=== PATIENT | female | born 1995 | race Caucasian/White ===

== ENCOUNTER → 2017-11-17 16:55 | Outpatient (CLI) | payer OTHER, MEDICAID, SELFPAY ==
[2017-11-17 19:01] LABS: hCG Titer Quant., Serum 10534 mIU/mL (<9 non-preg)
[2017-11-18 02:00] LABS: Chlamydia Trachomatis by PCR Negative (Negative); Neisserai gonorrhoeae by PCR Negative (Negative); Probe Check PASS; Sample Adequacy Control PASS; Specimen Processing Control PASS
== END ==
PROVIDERS: Visit Provider Obstetrics & Gynecology
DX: N91.2 Amenorrhea, unspecified (principal); Z12.4 Encounter for screening for malignant neoplasm of cervix; Z11.3 Encounter for screening for infections with a predominantly sexual mode of transmission
CPT/HCPCS: 36415; 84702; 87491; 87591; 88175; G0145

== ENCOUNTER → 2017-11-19 16:58 | Outpatient (CLI) | payer OTHER, MEDICAID, SELFPAY ==
[2017-11-19 18:36] LABS: hCG Titer Quant., Serum 16811 mIU/mL (<9 non-preg)
== END ==
PROVIDERS: Visit Provider Obstetrics & Gynecology
DX: N91.2 Amenorrhea, unspecified (principal)
CPT/HCPCS: 36415; 84702

== ENCOUNTER → 2017-12-08 14:35 | Outpatient (CLI) | payer OTHER, MEDICAID, SELFPAY ==
[2017-12-08 15:43] LABS: Absolute Lymphocyte Count 2.31 X10^3/ul (0.83-4.51); Absolute Neutrophil Count 7.8 X10^3/uL (2.0-7.7); Basophil# 0.03 X10^3/uL; Basophil% 0.3 % (0-1); Eosinophils% 0.9 % (0-5); Hematocrit 41.7 % (37-47); Hemoglobin 14.3 g/dl (12.0-15.0); Lymphocyte # 2.31 X10^3/ul (4.0); Lymphocyte % 21.6 % (19-41); Mean Corp Hgb Conc 34.3 g/gl (32-36); Mean Corpuscular Hgb 30.2 pg (27.0-32.0); Mean Corpuscular Volume 88.2 fL (81-99); Mean Platelet Vol. 9.8 fl (6.2-12.0); Monocyte# 0.41 X10^3/uL; Monocyte% 3.8 % (0-10); Neutrophil # 7.78 X10^3/uL (2.7-7.7); Neutrophil % 72.7 % (47-70); Platelet Count 423 K/mm3 (150-450); RBC Distribution Width CV 13.5 % (11.6-14.6); RBC Distribution Width SD 43.2 fl (35.1-43.9); Red Blood Count 4.73 M/mm3 (4.2-5.4); White Blood Count 10.7 K/mm3 (4.4-11.0)
[2017-12-08 15:47] LABS: POSITIVE COUNT NO; POSITIVE DIFFERENTIAL NO; POSITIVE MORPHOLOGY NO
[2017-12-08 16:00] LABS: Glucose, Dipstick Normal (Normal); Ketone-Dipstick 5 mg/dl (Negative); Leukocyte Esterase-Dipstick 25 /ul (Negative); Nitrite-Dipstick Negative (Negative); Occult Blood-Urine Negative /ul (Negative); Protein-Dipstick 15 mg/dl (Negative); Urine Bilirubin Dipstick Negative (Negative); Urine Urobilinogen Normal (Normal); Urine pH 6.5 (5.0 - 8.0)
[2017-12-08 16:01] LABS: Color, Urine YELLOW (Yellow); Urine Clarity Clear (Clear)
[2017-12-08 16:28] LABS: Amphetamine Urine VISTA NEGATIVE (<1000 ng/mL); Barbiturate Urine VISTA NEGATIVE (< 200 ng/mL); Benzodiazepine Urine VISTA NEGATIVE (< 200 ng/mL); Cocaine Urine VISTA NEGATIVE (< 300 ng/mL); Ecstacy Urine VISTA NEGATIVE (< 500 ng/mL); Methadone Urine VISTA NEGATIVE (< 300 ng/mL); PCP Urine VISTA NEGATIVE (< 25 ng/mL); THC Urine VISTA NEGATIVE (< 50 ng/mL); Thyroid Stim Hormone (TSH) 1.24 uIU/mL (0.358-3.74); Vista UDS pH Range 6
[2017-12-08 16:58] LABS: COTININE Drug Screen Positive (<200 ng/mL); HIV - WCH Non-Reactive (Nonreactive); Rubella IgG 13.1 IU/mL
[2017-12-10 08:12] LABS: HEPATITIS B SURFACE AG Negative (Negative); Hep C Antibodies 0.2 s/co ratio (0.0-0.9)
[2017-12-12 00:18] LABS: Prenatal RPR NONREACTIVE (NONREACTIVE)
== END ==
PROVIDERS: Visit Provider Obstetrics & Gynecology
DX: Z34.81 Encounter for supervision of other normal pregnancy, first trimester (principal)
CPT/HCPCS: 36415; 80307; 81002; 84443; 85025; 86703; 86762; 86803; 87340

== ENCOUNTER → 2018-02-18 15:02 | Outpatient (CLI) | payer OTHER, MEDICAID, SELFPAY ==
[2018-02-24 11:54] LABS: V-Zoster IgG (Immunity) 225 index (Immune >165)
== END ==
PROVIDERS: Visit Provider Obstetrics & Gynecology
DX: Z34.82 Encounter for supervision of other normal pregnancy, second trimester (principal)
CPT/HCPCS: 36415; 86787

== ENCOUNTER → 2018-04-16 14:41 | Outpatient (CLI) | payer MEDICAID, SELFPAY ==
[2018-04-16 15:41] LABS: Hematocrit 38.4 % (37-47); Hemoglobin 12.9 g/dl (12.0-15.0); Mean Corp Hgb Conc 33.6 g/gl (32-36); Mean Corpuscular Hgb 30.6 pg (27.0-32.0); Mean Corpuscular Volume 91.2 fL (81-99); Mean Platelet Vol. 10.4 fl (6.2-12.0); Platelet Count 274 K/mm3 (150-450); RBC Distribution Width CV 13.6 % (11.6-14.6); RBC Distribution Width SD 44.5 fl (35.1-43.9); Red Blood Count 4.21 M/mm3 (4.2-5.4); White Blood Count 16.8 K/mm3 (4.4-11.0)
[2018-04-16 15:42] LABS: Scan Indicated on CBC? Y/N NO
[2018-04-16 15:51] LABS: Glucose Challenge Gest 1H 50g 145 mg/dL (70-140)
== END ==
PROVIDERS: Visit Provider Obstetrics & Gynecology
DX: Z34.83 Encounter for supervision of other normal pregnancy, third trimester (principal)
CPT/HCPCS: 36415; 82950; 85027

== ENCOUNTER → 2018-04-24 09:44 | Outpatient (CLI) | payer MEDICAID, SELFPAY ==
[2018-04-24 11:46] LABS: Glucose GTT-Gestation. Fasting 80 mg/dL (<105)
[2018-04-24 13:35] LABS: Glucose GTT-Gestational 2 Hr 145 mg/dL (<165)
[2018-04-24 13:41] LABS: Glucose GTT-Gestational 1 Hr 151 mg/dL (<190)
[2018-04-24 14:15] LABS: Glucose GTT-Gestational 3 Hr 82 L (<145)
--- OUTSIDE RECORDS SUMMARY | 2018-06-09 23:39 | XMS RPT_ITS ---
:1995 Author Organization OHIP Care Team Providers Name Role Phone ADRIENNE BURTON Consulting Unavailable ADRIENNE BURTON Referring Unavailable CHANTE OTT CNM Admitting Unavailable CHANTE OTT CNDeedee Attending Unavailable CHANTE OTT CNM Primary Care Unavailable PROVIDER, UNKNOWN Consulting Unavailable PROVIDER, UNKNOWN Consulting Unavailable PROVIDER, UNKNOWN Consulting Unavailable Adrienne Bañuelos Attending Unavailable Ramona Dos Santos PA-C Referring Unavailable Primay Care Physicia, No Primary Care Unavailable Adrienne Bañuelos Attending Unavailable DOCTOR, OUT OF TOWN Primary Care Unavailable Shawna Rowan Attending Unavailable Shawna Rowan Referring Unavailable Primay Care Physicia, No Primary Care Unavailable Adrienne Bañuelos Attending Unavailable Primay Care Physicia, No Primary Care Unavailable Solis Figueredo Attending Unavailable Primay Care Physicia, No Primary Care Unavailable Adrienne Bañuelos Attending Unavailable Primay Care Physicia, No Primary Care Unavailable PROBLEMS PROBLEMS DATE TYPE CONDITION / CODE ATTENDING STATUS SOURCE 04/20/2018 Unknown Z34.83 - Encounter Adrienne Bañuelos for supervision of [facility] , third Repository trimester / Z34.83(ICD-10) 02/27/2018 Admitting Other specified NAMRATA, CHANTE Active Giovanni Pomerene Diagnosis related [facility] conditions, second Hospital trimester / Repository [id number](ICD-10) 02/27/2018 Principle Other specified NAMRATA, CHANTE Active Giovanni Pomerene Diagnosis related [facility] conditions, second Hospital trimester / Repository D05134(ICD-10) 02/27/2018 Secondary Unspecified NAMRATA, CHANTE Active Giovanni Pomerene Diagnosis abdominal pain / [facility] R109(ICD-10) Hospital Repository 02/27/2018 Secondary Low back pain / NAMRATA, CHANTE Active Giovanni Pomerene Diagnosis M545(ICD-10) [facility] Hospital Repository 02/27/2018 Secondary Smoking (tobacco) NAMRATA, CHANTE Active Giovanni Pomerene Diagnosis complicating [facility] , second Hospital trimester / Repository A36716(ICD-10) 02/27/2018 Secondary Nicotine NAMRATA, CHANTE Active Giovanni Pomerene Diagnosis dependence, [facility] cigarettes, Hospital uncomplicated / Repository M02630(ICD-10) 02/27/2018 Secondary 20 weeks gestation NAMRATA, CHANTE Active Giovanni Pomerene Diagnosis of / [facility] Z3A20(ICD-10) Hospital Repository 05/20/2018 Unknown Z34.82 - Encounter Solis Figueredo for supervision of [facility] , second Repository trimester / Z34.82(ICD-10) 05/20/2018 Unknown Z34.81 - Encounter Adrienne Bañuelos for supervision of [facility] , first Repository trimester / Z34.81(ICD-10) 05/20/2018 Unknown N91.2 - Amenorrhea, Shawna Rowan unspecified / [facility] N91.2(ICD-10) Hospital Repository PROCEDURES PROCEDURES No Procedure Records FoundRESULTS RESULTS GESTATIONAL GTT 3HR Collected: 04/24/2018 Status: F Source: IRA 100G 10:01 AM [facility] REPOSITORY Order Comment: Is Patient Fasting? N TYPE CODE TESTS RESULT OUT OF RANGE REFERENCE UNITS LAB L501.0650 <105 mg/dL Normal GLU 80 GTT-FASTING Result Comment: GLUCOSE TOLERANCE TEST FOR Reference Interval GESTATIONAL DIABETES Fasting <105 mg/dL 1 hour <190 mg/dl 2 hour <165 mg/dl 3 hour <145 mg/dl LAB L501.0670 <165 mg/dL Normal GLU GTT- 2HR 145 LAB L501.0660 <190 mg/dL Normal GLU GTT- 1HR 151 LAB L501.0680 <145 L Normal GLU GTT- 3HR 82 Performed By: #### L500.4710 #### [facility] [address] [facility]. [place], [place], [id number] CBC-COMPLETE BLOOD CNT Collected: 04/16/2018 Status: F Source: IRA NO DIFF 2:46 PM [facility] REPOSITORY TYPE CODE TESTS RESULT OUT OF RANGE REFERENCE UNITS LAB L100.1000 4.4-11.0 K/mm3 High WBC 16.8 LAB L100.1200 4.2-5.4 M/mm3 Normal RBC 4.21 LAB L100.1300 12.0-15.0 g/dl Normal HGB 12.9 LAB L100.1400 37-47 % Normal HCT 38.4 LAB L100.1500 81-99 fL Normal MCV 91.2 LAB L100.1600 27.0-32.0 pg Normal MCH 30.6 LAB L100.1700 32-36 g/gl Normal MCHC 33.6 LAB L100.1810 11.6-14.6 % Normal RDW CV 13.6 LAB L100.1820 35.1-43.9 fl High RDW SD 44.5 LAB L100.1900 150-450 K/mm3 Normal PLT 274 LAB L100.2000 6.2-12.0 fl Normal MPV 10.4 Performed By: #### L100.0500 #### [facility] [address] [facility]. [place], [place], [id number] GLUCOSE CHALLENGE GEST Collected: 04/16/2018 Status: F Source: IRA 1H 50G 2:46 PM [facility] REPOSITORY TYPE CODE TESTS RESULT OUT OF RANGE REFERENCE UNITS LAB L501.0250 70-140 mg/dL High GLU GEST 145 50g 1H Performed By: #### L501.0250 #### [facility] [place], [address] Observed: 02/27/2018 Status: F Source: GIOVANNI KENNEDY CULTURE URINE 8:12 PM [facility] REPOSITORY CULTURE URINE _URINE CULTURE_ M I C R O B I O L O G Y R E P O R T FINAL Antimicrobial Susceptibility and Organism Identification Report Specimen Number : [id number] Requested : 02/27/18 Specimen Source : CLEAN CATCH URINE Collected : 02/27/18 20:12 Thomason of Isolation : OBSTETRICS Received : 02/27/18 20:12 Requesting Physician : NAMRATA Patient/Specimen Tests and Comments Specimen Comments FINAL REPORT: URINE COLONY COUNT: [id number] CFU/CC >OR=TO 3 COLONY TYPES PROBABLE CONTAMINATION Tech : Source : CLEAN CATCH URINE ID # : [id number] FINAL Report Date : / / : Collected : 02/27/18 20:12 03/02/18.BKO. 03/01/186.KLS. 03/02/18.BKO.COMPLETE Performed By: #### [id number] #### [facility],[address] [place] [address] URINALYSIS WITH Collected: 02/27/2018 Status: F Source: [facility] MICROSCOPY 8:05 PM [facility] REPOSITORY TYPE CODE TESTS RESULT OUT OF REFERENCE UNITS RANGE LAB URINALYSIS WITH MICROSCOPY(LOIN C) URINALYSIS WITH MICROSCOPY Result Comment: URINALYSIS LAB Specimen Type(LOINC) Specimen Type Clean catch LAB Color(LOINC) NORMAL: YELLOW Color sylvie LAB Clarity(LOINC) NORMAL: CLEAR Clarity clear LAB ph(LOINC) NORMAL: 5.0-8.0 ph 6 LAB Protein(LOINC) NORMAL: Abnormal NEGATIVE Protein 15 LAB Glucose(LOINC) NORMAL: NORMAL Glucose NORM LAB Ketone(LOINC) NORMAL: Abnormal NEGATIVE Ketone 15 LAB Bilirubin(LOINC) NORMAL: NEGATIVE Bilirubin NEG LAB Blood(LOINC) NORMAL: NEGATIVE Blood NEG LAB Urobilinog(LOINC) NORMAL: Abnormal NORMAL Urobilinog 1 LAB Sp Murdo(LOINC) NORMAL: 1.010-1.030 Sp Murdo 1.025 LAB Nitrite(LOINC) NORMAL: NEGATIVE Nitrite NEG LAB Leukocytes(LOINC) NORMAL: Abnormal NEGATIVE Leukocytes 25 Result Comment: URINE MICROSCOPIC LAB Wbc(LOINC) 0-5 / hpf Wbc 1-5 LAB Rbc(LOINC) 0-3 / hpf Rbc 0-5 LAB Casts(LOINC) Casts NONE LAB Crystals(LOINC) Crystals NONE LAB Amorphous(LOINC) Amorphous NONE LAB Bacteria(LOINC) Bacteria 1+ LAB Epi Cells(INC) Epi Cells MODERATE LAB Mucous(LOINC) Mucous NONE LAB Yeast(INC) Yeast NONE Performed By: #### [id number] #### [facility],[address] [place] [address] WET Observed: 02/27/2018 Status: F Source: [facility] PREP TRICHOMONAS 8:05 [facility] REPOSITORY WET PREP TRICHOMONAS WET PREP TRICHOMONAS WET PREP: No Trich. seen Performed By: #### [id number] #### [facility],[address] [place] [address] Observed: 02/27/2018 Status: F Source: [facility] RICK PREP 8:05 [facility] REPOSITORY RICK PREP RICK PREP YEAST: No Yeast seen FUNGAL: No Fungal elements seen Performed By: #### [id number] #### [facility],[address] [place] [address] CHLAMYDIA & GC RNA TMA Collected: 02/27/2018 Status: F Source: [facility] [QUEST] 8:05 [facility] REPOSITORY TYPE CODE TESTS RESULT OUT OF REFERENCE UNITS RANGE LAB CHLAMYDIA & GC RNA TMA [QUEST]([facility]) CHLAMYDIA & GC RNA TMA [QUEST] Result Comment: _CHLAMYDIA/NEISSERIA GONORRHOEAE RNA,TMA_ CHLAMYDIA/N. GONORRHOEAE RNA, TMA, UROGENITAL Reported: 03/03/2018 14:57 Status=F TEST RESULT FLAG RANGE UNITS CTRACHOMATISRNA, TMA, Not Detected Not Detected 03/03/18.1509.rfl.CORRCTD .AMRR .39200-8 UROG KINDRA CRUZ, Not Detected Not Detected 03/03/18.1509.rfl.CORRCTD .AMRR .12031-6 UROG This test was performed using the APTIMA COMBO2(R) Assay (GEN-PROBE(R)). The analytical performance characteristics of this assay, when used to test SurePath(R) specimens have been determined by [employer]. Test Performed by [employer] [place], [facility], [address] [place] [address] Christopher Shea M.D., Ph.D., Director of Laboratories , [place] [id number] 03/03/18.1827.XMT.SENT REF 03/03/18.XMT.SENT REF Performed By: #### [id number] #### [facility],[address] [place] [address] V-ZOSTER IGG Collected: 02/18/2018 Status: F Source: IRA (IMMUNITY) 3:06 PM [facility] REPOSITORY Order Comment: Comments: UNK IMMUNITY TYPE CODE TESTS RESULT OUT OF RANGE REFERENCE UNITS LAB L3400.0000 Immune >165 index Normal VZOST IgG 225 09142 Result Comment: Negative <135 Equivocal 135 - 165 Positive >165 A positive result generally indicates exposure to the pathogen or administration of specific immunoglobulins, but it is not indication of active infection or stage of disease. Performed at: - [facility] [id number] Ux Manager: Jesus Solis PhD, Phone: [phone] Performed By: #### L3400.0000 #### [facility] (refer to report for specific site) refer to report for address and phone number URINE DRUG SCREEN Collected: 12/08/2017 Status: F Source: IRA (VISTA) 2:39 PM [facility] REPOSITORY Order Comment: List of Drugs Taken or Suspected? UNK TYPE CODE TESTS RESULT OUT OF RANGE REFERENCE UNITS LAB L505.0075 TO BE Normal CONFIRMED Result Comment: CONFIRMATORY TESTING FOR ALL POSITIVE URINE DRUG SCREEN RESULTS WILL ONLY BE SENT OUT UPON PHYSICIAN ORDER. VISTA Urine Drug Screen methods provide only preliminary analytical test results. A more specific alternate chemical method must be used in order to obtain a confirmed analytical result. Gas chromatography/mass spectrometery (GC/MS) is the preferred confirmatory method. Clinical consideration and professional judgement should be applied to any drug of abuse test result, particularly when preliminary positive results are used. URINE TCA TESTING MUST BE ORDERED SEPARATELY. USE TEST MNEMONIC: [facility] LAB L505.5005 VISTA UDS PH 6 Normal LAB L505.5015 <1000 ng/mL AMPHETAMINES Normal NEGATIVE LAB L505.5025 < 200 ng/mL BARBITIURATES Normal NEGATIVE LAB L505.5035 < 200 ng/mL BENZODIAZIPINE Normal NEGATIVE LAB L505.5045 < 300 ng/mL COCAINE Normal NEGATIVE LAB L505.5055 < 500 ng/mL ECSTACY Normal NEGATIVE LAB L505.5065 < 300 ng/mL METHADONE Normal NEGATIVE LAB L505.5075 < 300 ng/mL OPIATES Normal NEGATIVE LAB L505.5085 < 25 ng/mL PCP Normal NEGATIVE LAB L505.5095 < 50 ng/mL THC Normal NEGATIVE Performed By: #### L505.5000, L505.6240 #### [facility] [address] [facility]. [place], [place], [id number] NICOTINE URINE DRUG Collected: 12/08/2017 Status: F Source: IRA SCREEN 2:39 PM [facility] REPOSITORY Order Comment: List of Drugs Taken or Suspected? UNK TYPE CODE TESTS RESULT OUT OF RANGE REFERENCE UNITS LAB L505.6250 TO BE Normal CONFIRMED Result Comment: CONFIRMATORY TESTING FOR ALL POSITIVE URINE DRUG SCREEN RESULTS WILL ONLY BE SENT OUT UPON PHYSICIAN ORDER. The results of Urine Drug Screen methods provide only preliminary analytical test results. A more specific alternate chemical method must be used in order to obtain a confirmed analytical result. Gas chromatography/mass spectrometery (GC/MS) is the preferred confirmatory method. Clinical consideration and professional judgement should be applied to any drug of abuse test result, particularly when preliminary positive results are used. LAB L505.6270 <200 ng/mL High COT DRG Positive SCREEN Result Comment: Cotinine is the first-stage metabolite of Nicotine. Performed By: #### L505.5000, L505.6240 #### [facility] [address] [facility]. [place], [place], [address] CBC W/DIFF, AUTOMATED Collected: 12/08/2017 Status: F Source: IRA 2:39 PM [facility] REPOSITORY TYPE CODE TESTS RESULT OUT OF RANGE REFERENCE UNITS LAB L100.1000 4.4-11.0 K/mm3 Normal WBC 10.7 LAB L100.1200 4.2-5.4 M/mm3 Normal RBC 4.73 LAB L100.1300 12.0-15.0 g/dl Normal HGB 14.3 LAB L100.1400 37-47 % Normal HCT 41.7 LAB L100.1500 81-99 fL Normal MCV 88.2 LAB L100.1600 27.0-32.0 pg Normal MCH 30.2 LAB L100.1700 32-36 g/gl Normal MCHC 34.3 LAB L100.1810 11.6-14.6 % Normal RDW CV 13.5 LAB L100.1820 35.1-43.9 fl Normal RDW SD 43.2 LAB L100.1900 150-450 K/mm3 Normal PLT 423 LAB L100.2000 6.2-12.0 fl Normal MPV 9.8 LAB L100.2100 47-70 % High NEUT% 72.7 LAB L100.2200 19-41 % Normal LY% 21.6 LAB L100.2300 0-10 % Normal MONO% 3.8 LAB L100.2400 0-5 % Normal EO% 0.9 LAB L100.2500 0-1 % Normal BASO% 0.3 LAB L100.2550 0.0-0.9 % Normal IM GRAN % 0.700 Result Comment: IG% - Immature Granulocytes (promyelocytes, myelocytes and metamyelocytes) > 1% indicates that a LEFT SHIFT is Present. LAB L100.2620 2.0-7.7 X10 3/uL High Absolute Neut 7.8 LAB L100.2720 0.83-4.51 X10 3/ul Normal Absolute Lymph 2.31 Performed By: #### L100.0100 #### [facility] [address] [place], [address] URINALYSIS, ROUTINE Collected: 12/08/2017 Status: F Source: IRA (DIPSTICK) 2:39 PM [facility] REPOSITORY Order Comment: How was Urine Obtained? Urine, Random TYPE CODE TESTS RESULT OUT OF RANGE REFERENCE UNITS LAB L400.3000 Yellow COLOR Normal YELLOW LAB L400.3050 Clear Normal CLARITY Clear LAB L400.3200 Normal mg/dl Normal GLUCOSE, UR Normal LAB L400.3300 Negative mg/dL Normal BILIRUBIN URINE Negative LAB L400.3400 Negative mg/dl High 5 KETONE UR LAB L400.3465 1.002-1.030 Normal SP.GR. DIPSTX 1.020 LAB L400.3550 5.0 - 8.0 pH UR Normal 6.5 LAB L400.3600 Negative mg/dl High PROT 15 DIPSTX LAB L400.3700 Normal mg/dl Normal UROBILI Normal LAB L400.3750 Negative Normal NITRITE UR Negative LAB L400.3780 Negative /ul Normal OCCULT BLOOD-UR Negative LAB L400.3800 Negative /ul High LEUK 25 ESTERASE Performed By: #### L400.2010 #### [facility] [address] [place], [place], [id number] THYROID STIM HORMONE Collected: 12/08/2017 Status: F Source: ADRIAN (TSH) 2:39 PM [facility] REPOSITORY TYPE CODE TESTS RESULT OUT OF RANGE REFERENCE UNITS LAB L501.9520 0.358-3.74 uIU/mL Normal TSH 1.24 Performed By: #### L501.9520 #### [facility] [address] [place], [place], [id number] RUBELLA IGG Collected: 12/08/2017 Status: F Source: ADRIAN 2:39 PM [facility] REPOSITORY TYPE CODE TESTS RESULT OUT OF RANGE REFERENCE UNITS LAB L509.4000 IU/mL Normal Rubella IgG 13.1 Result Comment: Antibody results Interpretation of Immune Status < 5 IU/ml Presumed Non-immune 5 - < 10 IU/ml Equivocal > or = 10 IU/ml Presumed Immune Performed By: #### L509.4000, L3890.6005 #### [facility] [address] [facility] [place], [place], [id number] HIV - [facility] Collected: 12/08/2017 Status: F Source: ADRIAN 2:39 PM [facility] REPOSITORY TYPE CODE TESTS RESULT OUT OF RANGE REFERENCE UNITS LAB L3890.6005 Nonreactive Normal HIV - [facility] Non-Reactive Performed By: #### L509.4000, L3890.6005 #### [facility] [address] [place], [place], [address] T AND S-NO Collected: 12/08/2017 Status: F Source: ADRIAN CHARGE W/PNP 2:39 PM [facility] REPOSITORY Order Comment: Reason for Type AND Screen/Red Cells: Surgery? N TYPE CODE TESTS RESULT OUT OF RANGE REFERENCE UNITS LAB B10.0800 A Normal BLOOD POSITIVE TYPE GEL LAB B100.4050 Normal Ab SCREEN NEGATIVE GEL Performed By: #### B100.7550 #### [facility] [address] [facility] [place], [place], [id number] HEPATITIS B SURFACE Collected: 12/08/2017 Status: F Source: ADRIAN AG 2:39 PM [facility] REPOSITORY TYPE CODE TESTS RESULT OUT OF RANGE REFERENCE UNITS LAB L3100.0400 Negative Normal HB Negative SURF AG Result Comment: Performed at: - [facility] [address] [id number] Ux Manager: Jesus Solis PhD, Phone: [phone] Performed By: #### L3100.0390, L3100.0625 #### [facility] (refer to report for specific site) refer to report for address and phone number HEPATITIS C ANTIBODIES Collected: 12/08/2017 Status: F Source: ADRIAN 2:39 PM [facility] REPOSITORY TYPE CODE TESTS RESULT OUT OF RANGE REFERENCE UNITS LAB L3100.0650 0.0-0.9 s/co ratio Normal HEP C AB 0.2 Result Comment: Negative: < 0.8 Indeterminate: 0.8 - 0.9 Positive: > 0.9 The CDC recommends that a positive HCV antibody result be followed up with a HCV Nucleic Acid Amplification test (924973). Performed By: #### L3100.0390, L3100.0625 #### [facility] (refer to report for specific site) refer to report for address and phone number RPR Collected: 12/08/2017 Status: F Source: IRA 2:39 PM [facility] REPOSITORY TYPE CODE TESTS RESULT OUT OF REFERENCE UNITS RANGE LAB L700.5100 NONREACTIVE Normal RPR NONREACTIVE Performed By: #### L700.5100 #### [facility] [address] [facility] [place], [address] HCG TITER QUANT., Collected: 11/19/2017 Status: F Source: ADRIAN SERUM 5:22 PM [facility] REPOSITORY TYPE CODE TESTS RESULT OUT OF RANGE REFERENCE UNITS LAB L700.8000 <9 non-preg mIU/mL High HCG 51248 QUANT. Performed By: #### L700.8000 #### [facility] [address] [place], [address] HCG TITER QUANT., Collected: 11/17/2017 Status: F Source: ADRIAN SERUM 5:09 PM [facility] REPOSITORY TYPE CODE TESTS RESULT OUT OF RANGE REFERENCE UNITS LAB L700.8000 <9 non-preg mIU/mL High HCG 71831 QUANT. Performed By: #### L700.8000 #### [facility] [address] [facility] [place], [address] CT/NG [facility] BY PCR Collected: 11/17/2017 Status: F Source: ADRIAN 5:08 PM [facility] REPOSITORY TYPE CODE TESTS RESULT OUT OF RANGE REFERENCE UNITS LAB L8200.2100 Negative Normal Chlam Negative Trac PCR LAB L8200.2200 Negative Normal NG by Negative PCR Performed By: #### L8200.2000 #### [facility] [facility] [place], [address] PAP TEST I-G Collected: 11/17/2017 Status: F Source: ADRIAN 5:08 PM [facility] REPOSITORY Order Comment: CYTOLOGY INFORMATION: - CLINICAL INFORMATION: - DATE LMP/MENOPAUSE: 08/18/17 LMP - COLLECTION VIAL: Thin Prep Vial - WEATHER ANALYST SOURCE: CERVICAL/ENDOCERVICAL - COLLECTION TECHNIQUE: BRUSH/SPATULA Specimen Comment: [id number] Specimen Comment: No. of containers..01 ThinPrep Vial TYPE CODE TESTS RESULT OUT OF RANGE REFERENCE UNITS LAB L7400.0800 . Normal DIAGN Comment Result Comment: NEGATIVE FOR INTRAEPITHELIAL LESION AND MALIGNANCY. LAB L7400.0900 . Normal ADEQ Comment Result Comment: Satisfactory for evaluation. Endocervical and/or squamous metaplastic cells (endocervical component) are present. LAB L7400.1400 . Normal PERFORM Comment Result Comment: Nicol Moyer, Used Car Sales Supervisor (ASCP) LAB L7400.2575 . Normal TEST METHOD Comment Result Comment: This liquid based ThinPrep(R) pap test was screened with the use of an image guided system. Performed at: - [facility] [id number] Ux Manager: Cindy Landin MD, Phone: [phone] LAB L7400.4278 . Normal . COMM LAB L7400.2700 . Normal PAPSMR Comment Result Comment: The Pap smear is a screening test designed to aid in the detection of premalignant and malignant conditions of the uterine cervix. It is not a diagnostic procedure and should not be used as the sole means of detecting cervical cancer. Both false-positive and false-negative reports do occur. Performed By: #### L7400.0399 #### [facility] (refer to report for specific site) refer to report for address and phone number ALLERGIES ALLERGIES DATE TYPE / CODE NAME / CODE REACTION SEVERITY SOURCE Drug PENICILLINS Moderate Giovanni Pomerene Allergy/416 (CLASS)/47529674(R ([facility] 746950(SNOM XNORM) Modifier) Hospital ED CT) (Qualifier Repository Value) Drug AMOXICILLIN/650606 Moderate Giovanni Pomerene Allergy/416 76(RXNORM) (Severity [facility] 482303(SNOM Modifier) Hospital ED CT) (Qualifier Repository Value) Drug MORPHINE/40153140( CRYING Moderate Giovanni Pomerene Allergy/416 RXNORM) (Severity [facility] 036082(SNOM Modifier) Hospital ED CT) (Qualifier Repository Value) ENCOUNTERS ENCOUNTERS ADMIT/DISCHARGE ACCOUNT ADMITTING ENCOUNTER LOCATION SOURCE NUMBER CLASS 04/24/2018 [id number] Ambulatory [facility] 9 [facility] ing:LAB Repository 04/16/2018 [id number] Ambulatory [facility] ing:WOBLAB Repository 02/27/2018/ [id number] NAMRATA, Ambulatory BuildinR Giovanni Pomerene [address] [place] [address] oom: 208 [facility] Repository 02/18/2018 [id number] [place] [facility] ing:WOBLAB Repository 12/08/2017 [id number] Ambulatory [place] 7 [facility] ing:WOBLAB Repository 11/19/2017 [id number] Ambulatory [place] [facility] ing:LAB Repository 11/17/2017 [id number] Ambulatory [place] [facility] ing:WOBLAB Repository PAYERS PAYERS ENCOUNTER GUARANTOR PAYER SUBSCRIBER SOURCE 04/24/2018 EDNA LAUREANO MULLET Insurance:MICHELE STEIN: [facility] [id number] [address]Mvu: ([phone]) PLANPolicy Number: Repository [phone] () [id number] Date:[id number] [address]UX: 04/24/2018 Secondary NOT GIVENUNK [place] Insurance:SELF PAY [facility] Number: Effective Repository Date:2018-04-17 04/16/2018 EDNA LAUREANO Primary EDNA STEIN: [place] MULLET Insurance:[facility]LE [id number] [address]Ugj: (567) PLANPolicy Number: Repository [phone] () [id number] Date:[id number] [address]FH: 04/16/2018 Secondary NOT GIVENUNK [place] Insurance:SELF PAY [facility] Number: Effective Repository Date:2018-04-16 02/27/2018 EDNA STEIN: Giovanni STEIN: Insurance:[employer] [id number] [facility] [id number] [place]: [place] Rep[place] [address] [place] [address] [id number]: ([phone]) Date:Plan Name:A2 [phone] () 02/27/2018 Secondary EDNA Kennedy Insurance:MICHELE STEIN: [facility] [id number] Hospital OUTPATIENTPolicy [address] [place] [address], Repository Number: [place] [id number] Date:Plan Name:X2 02/18/2018 EDNA Seay Primary EDNA Roth [id number] MULLET Insurance:Siddhartha HANKINSB: Community DRAPT cy Number: [id number] [address] [id number] Repository [address]Dlw: [phone]) Date:[phone] () [address], [place] [address]ZO: 02/18/2018 Secondary EDNA L [place] Insurance:MICHELE STEIN: [facility] [id number] [facility] PLANPolicy Number: Repository [id number] Date:[id number] [address] [place] [address] 56827NU: 02/18/2018 Tertiary NOT GIVENUNK Ira Insurance:SELF PAY [facility] Number: Effective Repository Date:2018-02-18 12/08/2017 EDNA Seay Primary EDNA Roth [id number] MULLET Insurance:Siddhartha STEIN: [facility] DRAPT cy Number: [id number] [id number] Repository 45163Obz: [phone]) Date:2867-95-51BT [phone] () [place], [place] [address]CX: 12/08/2017 Secondary EDNA L [place] Insurance:MICHELE STEIN: [facility] [id number] Hospital PLANPolicy Number: Repository [id number] Date:2547-10-28AD [address] [place] [address] 48371RX: 12/08/2017 Tertiary NOT GIVENUNK Ira Insurance:SELF PAY [facility] Number: Effective Repository Date:2017-12-08 11/19/2017 EDNA Seay Primary EDNA [id number] MULLET Insurance:AUBoom HANKINSB: [facility] cy Number: [id number] [id number] Repository 92089Vok: [phone]) Date:2980-59-84IN [phone] () [address], [place] [address]BR: 11/19/2017 Secondary EDNA L [place] Insurance:MICHELE STEIN: [facility] [id number] Hospital PLANPolicy Number: Repository [id number] Date:1321-08-36BI [address] [place] [address] 43606XP: 11/19/2017 Tertiary NOT GIVENUNK [place] Insurance:SELF PAY [facility] Number: Effective Repository Date:2017-11-19 11/17/2017 EDNA Seay Primary EDNA [id number] MULLET Insurance:Siddhartha STEIN: [facility] cy Number: [id number] [id number] Repository 34[address]Ple: [phone]) Date:4476-45-54KV [phone] () [address], [place] [address]YE: 11/17/2017 Secondary EDNA L [place] Insurance:MICHELE STEIN: [facility] [id number] Hospital PLANPolicy Number: Repository [id number] Date:7605-05-25SQ [address] [place] [address] 10842YC: 11/17/2017 Tertiary NOT GIVENUNK Ira Insurance:SELF PAY [facility] Number: Effective Repository Date:2017-11-17
== END ==
PROVIDERS: PCP Family Medicine; Referring Provider Family Medicine; Visit Provider Obstetrics & Gynecology
DX: O24.912 Unspecified diabetes mellitus in pregnancy, second trimester (principal); Z3A.00 Weeks of gestation of pregnancy not specified
CPT/HCPCS: 36415; 82951; 82952

== ENCOUNTER 2018-06-21 12:20 | Outpatient (CLI) | payer MEDICAID, SELFPAY ==
[2018-06-21 12:41] VITALS: BMI 38.9
--- NOTE | 2018-06-21 13:10 | OB.TRI.NOTE ---
- Problem List (1) 36 weeks gestation of Status: Acute (2) Decreased movement Status: Acute Qualifiers: Trimester: third trimester History of Present Illness Date of Service: 06/21/18 Was patient seen by the physician?: No Reason For Visit: DECREASED MOVEMENT Date of Service: 06/21/18 Final ANNIA: 07/15/18 Final ANNIA Source: US <20 weeks Gestational age: 36 Weeks and 4 Days History of Present Illness: 23yo with c/o decreased movement. Did feel movement on way here and in hospital. Allergies Penicillins [PCN] Allergy (Verified 06/21/18 12:42) Rash NST - FHR Rate Baby A Baseline: 150 Variability:: Moderate Accelerations:: None Decelerations:: None NST Reactive:: Yes FHR Category:: Category II Uterine Activity:: 2/10 min Impression/Plan Reactive NST, Cat I FHR d/c home
== END 2018-06-21 13:13 | disposition home or self-care (01) ==
LOC: WPOUT 12:39 → WP 12:40
PROVIDERS: Visit Provider Obstetrics & Gynecology
DX: O36.8130 Decreased fetal movements, third trimester, not applicable or unspecified (principal); Z3A.36 36 weeks gestation of pregnancy
CPT/HCPCS: 59025; 59050; 99218; G0378

== ENCOUNTER 2018-06-30 12:35 | Inpatient (IN) | payer MEDICAID, SELFPAY ==
[2018-06-30] VITALS (13 sets, daily range): BP systolic 101–135; BP diastolic 53–78; PULSE 81–93; RESP 14–18; TEMP 35.8–37.1; O2SAT 16–99; BMI 39.2
[2018-06-30] MEDS: Lactated Ringers 1,000 ML 999 ML IV (13:35)
[2018-06-30 13:37] LABS: ROM Internal Control Test YES-OK TO RESULT pt. (Internal QC); ROM Patient Test POSITIVE (Negative); Record Kit Lot#, ROM+ J7836
[2018-06-30 13:55] LABS: Absolute Lymphocyte Count 2.08 X10^3/ul (0.83-4.51); Basophil# 0.06 X10^3/uL; Basophil% 0.4 % (0-1); Eosinophils% 0.7 % (0-5); Hematocrit 41.1 % (37-47); Hemoglobin 13.8 g/dl (12.0-15.0); Lymphocyte # 2.08 X10^3/ul (4.0); Lymphocyte % 14.5 % (19-41); Mean Corp Hgb Conc 33.6 g/gl (32-36); Mean Corpuscular Hgb 30.1 pg (27.0-32.0); Mean Corpuscular Volume 89.7 fL (81-99); Mean Platelet Vol. 10.6 fl (6.2-12.0); Monocyte# 0.76 X10^3/uL; Monocyte% 5.3 % (0-10); Neutrophil # 10.99 X10^3/uL (2.7-7.7); Neutrophil % 76.7 % (47-70); Platelet Count 269 K/mm3 (150-450); RBC Distribution Width CV 13.9 % (11.6-14.6); RBC Distribution Width SD 44.5 fl (35.1-43.9); Red Blood Count 4.58 M/mm3 (4.2-5.4); White Blood Count 14.3 K/mm3 (4.4-11.0)
[2018-06-30 13:58] LABS: POSITIVE COUNT YES; POSITIVE DIFFERENTIAL NO; POSITIVE MORPHOLOGY YES
[2018-06-30] MEDS: Lactated Ringers 1,000 ML 150 ML IV (14:36)
[2018-06-30] MEDS: Sodium Citrate/Citric Acid 30 ML UDC PO (15:21)
--- NOTE | 2018-06-30 15:37 | PCM.DCCSEC ---
Discharge Diet: No Restrictions Discharge Activity: May not drive while taking narcotic pain medications., May Shower, May Take a Tub Bath Return to work on:: 08/17/18 May resume sexual activity in: 4-6 weeks Lifting Restrictions: 20 pounds Additional Activity Instructions:: Nothing in the vagina for 4-6 weeks. You may return to work/school in 6 weeks. Change Dressing in (Days):: 7 Remove Dressing in (days):: 7 Cleanse incision/area with: Soap & Water, Keep Dressing Clean & Dry Additional Instructions: If you experience any of the following, contact your healthcare provider. Bleeding that soaks a pad every hour for 2 hours Fever 100.4 or higher Unrelieved incision or abdominal pain Swelling, redness, discharge or bleeding from your incision Problems urinating (including inability to urinate or burning while urinating). Visual changes Severe headache Flu-like symptoms Pain or redness in one of both of your breasts Pain, warmth, tenderness or swelling in your legs, especially the calf area Frequent nausea and vomiting Symptoms of depression or anxiety If you experience any of the following, call 911 or go to the nearest Emergency Room. Chest pain Problems breathing Seizure activity Partial or complete paralysis of a body part, slurred speech, weakness or drooping of the face, or a sudden inability to walk or hold your balance Allergies/Adverse Reactions: Allergies Penicillins [PCN] Allergy (Verified 06/30/18 13:06) Rash Medications to take at Discharge Acetaminophen [Tylenol] 650 mg PO PRN PRN 06/30/18 Cephalexin [Keflex] 500 mg PO TID 06/30/18 Docusate Sodium [Colace] 100 mg PO BID #30 capsule 06/30/18 Guaifenesin/Pseudoephedrne HCl [Mucinex D ER 1,200-120 mg Tab] 1 tab PO Q12H PRN PRN 06/30/18 Naproxen [Naprosyn] 250 - 500 mg PO TID PRN PRN #30 tablet 06/30/18 Oxycodone [Oxyir] 5 mg PO Q6H PRN PRN 7 Days #20 tablet 06/30/18 Pnv No.103/Folic/Om3s/Fish Oil [ Gummies] 1 tab PO DAILY 06/30/18 Polyethylene Glycol 3350 [Miralax] 17 gm PO DAILY PRN #14 packet 06/30/18 The following prescriptions were given: Oxycodone [Oxyir] 5 mg PO Q6H PRN PRN 7 Days #20 tablet PRN Reason: Mod-Severe Pain (4-02/18) Naproxen [Naprosyn] 250 - 500 mg PO TID PRN PRN #30 tablet PRN Reason: Mild-Mod Pain (1-510) Polyethylene Glycol 3350 [Miralax] 17 gm PO DAILY PRN #14 packet PRN Reason: Constipation Docusate Sodium [Colace] 100 mg PO BID #30 capsule Follow-Up: Call to make an appointment with your doctor for an incision check in 1-2 weeks. You will also need a 6 week post- follow up appointment. Test results from this visit will be discussed in further detail at your follow-up appointment, if applicable. Please Follow Up With: Herb Bañuelos MD - [phone] When: Call to make an appointment for an incision check in 2 weeks. Primary Care Physician: Care Physician,No Primary [Primary Care Provider] -
--- NOTE | 2018-06-30 15:43 | DCINST_ITS ---
Discharge Diet: No Restrictions Discharge Activity: May not drive while taking narcotic pain medications., May Shower, May Take a Tub Bath Return to work on:: 08/17/18 May resume sexual activity in: 4-6 weeks Lifting Restrictions: 20 pounds Additional Activity Instructions:: Nothing in the vagina for 4-6 weeks. You may return to work/school in 6 weeks. Change Dressing in (Days):: 7 Remove Dressing in (days):: 7 Cleanse incision/area with: Soap & Water, Keep Dressing Clean & Dry Additional Instructions: If you experience any of the following, contact your healthcare provider. * Bleeding that soaks a pad every hour for 2 hours * Fever 100.4 or higher * Unrelieved incision or abdominal pain * Swelling, redness, discharge or bleeding from your incision * Problems urinating (including inability to urinate or burning while urinating). * Visual changes * Severe headache * Flu-like symptoms * Pain or redness in one of both of your breasts * Pain, warmth, tenderness or swelling in your legs, especially the calf area * Frequent nausea and vomiting * Symptoms of depression or anxiety If you experience any of the following, call 911 or go to the nearest Emergency Room. * Chest pain * Problems breathing * Seizure activity * Partial or complete paralysis of a body part, slurred speech, weakness or drooping of the face, or a sudden inability to walk or hold your balance Allergies/Adverse Reactions: Allergies Penicillins [PCN] Allergy (Verified 06/30/18 13:06) Rash Medications to take at Discharge Acetaminophen [Tylenol] 650 mg PO PRN PRN 06/30/18 Cephalexin [Keflex] 500 mg PO TID 06/30/18 Docusate Sodium [Colace] 100 mg PO BID #30 capsule 06/30/18 Guaifenesin/Pseudoephedrne HCl [Mucinex D ER 1,200-120 mg Tab] 1 tab PO Q12H PRN PRN 06/30/18 Naproxen [Naprosyn] 250 - 500 mg PO TID PRN PRN #30 tablet 06/30/18 Oxycodone [Oxyir] 5 mg PO Q6H PRN PRN 7 Days #20 tablet 06/30/18 Pnv No.103/Folic/Om3s/Fish Oil [ Gummies] 1 tab PO DAILY 06/30/18 Polyethylene Glycol 3350 [Miralax] 17 gm PO DAILY PRN #14 packet 06/30/18 The following prescriptions were given: Oxycodone [Oxyir] 5 mg PO Q6H PRN PRN 7 Days #20 tablet PRN Reason: Mod-Severe Pain (4-1010) Naproxen [Naprosyn] 250 - 500 mg PO TID PRN PRN #30 tablet PRN Reason: Mild-Mod Pain (1-510) Polyethylene Glycol 3350 [Miralax] 17 gm PO DAILY PRN #14 packet PRN Reason: Constipation Docusate Sodium [Colace] 100 mg PO BID #30 capsule Follow-Up: Call to make an appointment with your doctor for an incision check in 1-2 weeks. You will also need a 6 week post- follow up appointment. Test results from this visit will be discussed in further detail at your follow- up appointment, if applicable. Please Follow Up With: Herb Bañuelos MD - [phone] When: Call to make an appointment for an incision check in 2 weeks. Primary Care Physician: Care Physician,No Primary [Primary Care Provider] -
[2018-06-30] MEDS: Oxytocin 30 units/NS 500 ml 30 UNITS/500 ML IV.SOLN 167 UNITS IV (15:53)
[2018-06-30 16:35] LABS: Group B Strep DNA By PCR Negative (Negative); Internal Control PASS; Probe Check PASS; Specimen Processing Control PASS
[2018-06-30] MEDS: Ketorolac 30 MG/ML Syringe IV ×2 (16:37→22:19)
[2018-06-30] MEDS: Lactated Ringers 1,000 ML 100 ML IV (16:47)
--- NOTE | 2018-06-30 17:34 | PCM.OPRPT ---
Delivery Classification: BENNIE Final ANNIA: 07/15/18 Gestational age: 37 Weeks and 6 Days Indications for : Repeat Elective , - - SROM Description of Procedure: Findings: At amniotomy, clear fluid was noted. Chowdhury viable male in vertex presentation. Apgars 9/9, Baby weight: 6# 9 oz . There was a normal appearing uterus, fallopian tubes and ovaries bilaterally. There were minimal filmy adhesions between the bladder and lower uterine segment. PATH: Routine cord gases were sent. Narrative account: After the risks, benefits and alternatives of the procedure were reviewed with the patient, informed consent was obtained. The patient was taken to the Operating room with an IV running, and placed in a seated position on the operating table for placement of the spinal. Once the spinal had been administered, she was repositioned in dorsal supine position, briefly frog-legged for Escoto catheter placement, and vaginal vault prep, then repositioned again to dorsal supine position with leftward displacement of the uterus, and prepped and draped in the usual sterile fashion. Once the spinal was deemed adequate, a Pfannenstiel skin incision was created using the knife (through the prior skin incision scar). The incision was carried down to the rectus fascia using the knife. The fascia was nicked in the midline. The fascial incision was extended bilaterally using curved Baker scissors. The superior aspect of the fascial incision was grasped with Nitin clamps and tented up and the underlying rectus abdominal muscles were dissected free. In a similar manner, the inferior aspect of the facial incision was grasped with Nitin clamps tented up and the underlying rectus abdominal muscles were dissected free. The rectus abdominis muscles were in the midline and the peritoneum was identified and entered by blunt dissection high in the incision. The peritoneum was stretched laterally and a bladder blade was inserted. A bladder flap was created along the lower uterine segment with Metzenbaum scissors . The uterine incision was then created using Metzenbaum scissors. The operators fingertips were used to extend the uterine incision by blunt dissection in a caudad- cephalad orientation . Clear fluid was noted at amniotomy. The vertex was then delivered atraumatically through the incision. The OP and nares were bulb suctioned on the abdomen. The shoulders delivered easily . The cord clamped x two and cut. And the was handed off to the nurse awaiting delivery after briefly showing him to his mother and grandmother. The baby had a spontaneous, vigorous cry. The placenta was then delivered. The uterus was exteriorized and cleared of clots and debris . The uterine incision was repaired with 1 Vicryl in a running locked fashion. A second imbricating layer was then placed, using 1 Monocryl in running nonlocked fashion. Bovie cautery was used to treat any bleeding areas . A single horizontal mattress stitch of 1 Vicryl was placed at the mid portion of the incision for hemostasis. Excellent hemostasis was noted. At this point the uterus was returned to the abdominal cavity. The gutters were cleared of clots and debris and the incision at the uterus was inspected. Excellent hemostasis was noted. The peritoneal edges were reapproximated in the midline with a continuous suture of 1 Vicryl. The rectus abdominis muscles were reapproximated with a vertical mattress stitch of 1 Vicryl. Excellent hemostasis was noted at the subfascial space The fascia was closed in a running nonlocked fashion with a Stratofix. The Subcutaneous fatty tissue was Bovie cauterized as needed for hemostasis. This layer was then reapproximated in a single layer closure of running 3-0 Vicryl to eliminate space. The skin edges were closed in a Subcuticular stitch of 4-0 Monocryl. The incision was cleansed. Cavilon, Steristrips, and Mepilex dressing were applied to the skin . The patient was then transferred to the recovery room bed in stable condition after tolerating the procedure well. Sponge, lap, needle and instrument counts correct times two. Medications given preop and intraoperatively included: Gentamicin and clindamycin were given research consultant to the operating room for patient's reported PCN allergy (rash). Of note: The patient is taking Keflex tid for URI and therefore would also have tolerated Ancef. The patient also received Pitocin given IV after cord clamp, and Toradol 30 mg IV times one. For a complete listing of medications given preop and intraoperatively, please see the anesthesia record. Amniotic Membrane Rupture Type: Spontaneous Amniotic Fluid Description: Clear Placenta Disposition: [facility] Drain: Escoto to straight drain Cord Entanglement: None Cord Vessel Description: 3 Vessels Esitmated Blood Loss (ml): 600 Gender: Male (1 minute): 9 (5 minute): 9 Delayed cord clamping: No Pre-op Antibiotic Given: Clindamycin 600mg IV x1 and Gentamicin 1.5mg/kg IV x1 Pt instructed on risks of surgery: Bleeding, Infection, Need for Future C-Sections, Injury to surrounding structure(s) including bowel and bladder Complications: None - Admit VTE Documentation VTE Present on Admission: No VTE Mechan Device Prophylaxis: SCD's VTE Pharm Prophylaxis ordered?: No
--- NOTE | 2018-06-30 17:37 | OP.PCM_ITS ---
Delivery Classification: BENNIE Final ANNIA: 07/15/18 Gestational age: 37 Weeks and 6 Days Indications for : Repeat Elective , - - SROM Description of Procedure: Findings: At amniotomy, clear fluid was noted. Chowdhury viable male in vertex presentation. Apgars 9/9, Baby weight: 6# 9 oz . There was a normal appearing uterus, fallopian tubes and ovaries bilaterally. There were minimal filmy adhesions between the bladder and lower uterine segment. PATH: Routine cord gases were sent. Narrative account: After the risks, benefits and alternatives of the procedure were reviewed with the patient, informed consent was obtained. The patient was taken to the Operating room with an IV running, and placed in a seated position on the operating table for placement of the spinal. Once the spinal had been administered, she was repositioned in dorsal supine position, briefly frog- legged for Escoto catheter placement, and vaginal vault prep, then repositioned again to dorsal supine position with leftward displacement of the uterus, and prepped and draped in the usual sterile fashion. Once the spinal was deemed adequate, a Pfannenstiel skin incision was created using the knife (through the prior skin incision scar). The incision was carried down to the rectus fascia using the knife. The fascia was nicked in the midline. The fascial incision was extended bilaterally using curved Baker scissors. The superior aspect of the fascial incision was grasped with Nitin clamps and tented up and the underlying rectus abdominal muscles were dissected free. In a similar manner, the inferior aspect of the facial incision was grasped with Nitin clamps tented up and the underlying rectus abdominal muscles were dissected free. The rectus abdominis muscles were in the midline and the peritoneum was identified and entered by blunt dissection high in the incision. The peritoneum was stretched laterally and a bladder blade was inserted. A bladder flap was created along the lower uterine segment with Metzenbaum scissors . The uterine incision was then created using Metzenbaum scissors. The operators fingertips were used to extend the uterine incision by blunt dissection in a caudad- cephalad orientation . Clear fluid was noted at amniotomy. The vertex was then delivered atraumatically through the incision. The OP and nares were bulb suctioned on the abdomen. The shoulders delivered easily . The cord clamped x two and cut. And the infant was handed off to the nurse awaiting delivery after briefly showing him to his mother and grandmother. The baby had a spontaneous, vigorous cry. The placenta was then delivered. The uterus was exteriorized and cleared of clots and debris . The uterine incision was repaired with 1 Vicryl in a running locked fashion. A second imbricating layer was then placed, using 1 Monocryl in running nonlocked fashion. Bovie cautery was used to treat any bleeding areas . A single horizontal mattress stitch of 1 Vicryl was placed at the mid portion of the incision for hemostasis. Excellent hemostasis was noted. At this point the uterus was returned to the abdominal cavity. The gutters were cleared of clots and debris and the incision at the uterus was inspected. Excellent hemostasis was noted. The peritoneal edges were reapproximated in the midline with a continuous suture of 1 Vicryl. The rectus abdominis muscles were reapproximated with a vertical mattress stitch of 1 Vicryl. Excellent hemostasis was noted at the subfascial space The fascia was closed in a running nonlocked fashion with a Stratofix. The Subcutaneous fatty tissue was Bovie cauterized as needed for hemostasis. This layer was then reapproximated in a single layer closure of running 3-0 Vicryl to eliminate space. The skin edges were closed in a Subcuticular stitch of 4-0 Monocryl. The incision was cleansed. Cavilon, Steristrips, and Mepilex dressing were applied to the skin . The patient was then transferred to the recovery room bed in stable condition after tolerating the procedure well. Sponge, lap, needle and instrument counts correct times two. Medications given preop and intraoperatively included: Gentamicin and clindamycin were given collection development librarian to the operating room for patient's reported PCN allergy (rash). Of note: The patient is taking Keflex tid for URI and therefore would also have tolerated Ancef. The patient also received Pitocin given IV after cord clamp, and Toradol 30 mg IV times one. For a complete listing of medications given preop and intraoperatively, please see the anesthesia record. Amniotic Membrane Rupture Type: Spontaneous Amniotic Fluid Description: Clear Placenta Disposition: [facility] Drain: Escoto to straight drain Cord Entanglement: None Cord Vessel Description: 3 Vessels Esitmated Blood Loss (ml): 600 Gender: Male (1 minute): 9 (5 minute): 9 Delayed cord clamping: No Pre-op Antibiotic Given: Clindamycin 600mg IV x1 and Gentamicin 1.5mg/kg IV x1 Pt instructed on risks of surgery: Bleeding, Infection, Need for Future C- Sections, Injury to surrounding structure(s) including bowel and bladder Complications: None - Admit VTE Documentation VTE Present on Admission: No VTE Mechan Device Prophylaxis: SCD's VTE Pharm Prophylaxis ordered?: No
[2018-06-30] MEDS: 0.9% Saline Lock 10 ML Syringe IV (22:18)
[2018-06-30] MEDS: Cephalexin 500 MG Capsule PO (22:18)
[2018-07-01] VITALS (12 sets, daily range): BP systolic 104–125; BP diastolic 44–61; PULSE 65–93; RESP 16–18; TEMP 35.9–36.6; O2SAT 96–98
[2018-07-01] MEDS: Lactated Ringers 1,000 ML 100 ML IV (02:08)
--- NOTE | 2018-07-01 05:00 | NURSING ---
Called Dr. Garcia and notified her pts urine output is borderline and still concentrated. order to hold 0430 toradol.
[2018-07-01 05:21] LABS: Hematocrit 34.2 % (37-47); Hemoglobin 11.3 g/dl (12.0-15.0); Mean Corpuscular Hgb 30.3 pg (27.0-32.0); Mean Corpuscular Volume 91.7 fL (81-99); Mean Platelet Vol. 10.7 fl (6.2-12.0); Platelet Count 251 K/mm3 (150-450); RBC Distribution Width CV 13.8 % (11.6-14.6); RBC Distribution Width SD 45.1 fl (35.1-43.9); Red Blood Count 3.73 M/mm3 (4.2-5.4); Scan Indicated on CBC? Y/N NO; White Blood Count 14.2 K/mm3 (4.4-11.0)
[2018-07-01] MEDS: Cephalexin 500 MG Capsule PO ×3 (06:22→21:48)
[2018-07-01] MEDS: Ketorolac 30 MG/ML Syringe IV ×2 (06:25→12:58)
--- NOTE | 2018-07-01 08:05 | PN.OBGYN_ITS ---
Subjective: POD#1 Repeat C/S. 37 6/7 wk SROM Doing well. Nursing. pain control adequate. urine output was a little low and toradol delayed but then given with inc urine output. Ready to have Landin out. - Physical Exam General: Alert, Oriented x3, Cooperative, No apparent distress HEENT: Atraumatic Neck: Supple Abdomen: Soft - Fundus firm NT 1-2 cm inferior to umbilicus Skin: Incision - Mepilex CDI. no shadow drainage Neurological: Cranial nerves II-XII grossly intact Psych/Mental Status: Normal Affect Vital Signs Temp Pulse Resp BP Pulse Ox 97.9 F 72 16 109/44 L 97 07/01/18 07:52 07/01/18 07:52 07/01/18 07:52 07/01/18 07:52 07/01/18 07:52 Oxygen Delivery Method Room Air Weight: 97.4 kg Body Mass Index (BMI) 39.2 Intake and Output for Last 24 Hours 06/29/18 06/30/18 07/01/18 23:59 23:59 23:59 Intake Total 2227 / 2227 1291 / 1291 Output Total 900 / 900 620 / 620 Balance 1327 / 1327 671 / 671 Laboratory Tests Past 24 Hrs 06/30/18 06/30/18 06/30/18 13:00 13:35 13:35 WBC 14.3 H RBC 4.58 Hgb 13.8 Hct 41.1 MCV 89.7 MCH 30.1 MCHC 33.6 RDW 13.9 RDW Differential 44.5 H Plt Count 269 MPV 10.6 Immature Gran % (Auto) 2.400 H Neut % (Auto) 76.7 H Lymph % (Auto) 14.5 L [place] % (Auto) 5.3 Eos % (Auto) 0.7 Baso % (Auto) 0.4 Absolute Neuts (auto) 11.0 H Absolute Lymphs (auto) 2.08 Total Counted Not Reportable Diff Path Review May foll Vag Amniotic Fld Detect POSITIVE H Group B Strep DNA Specimen Comment Blood Type A POSITIVE Antibody Screen NEGATIVE 06/30/18 07/01/18 14:50 04:50 WBC 14.2 H RBC 3.73 L Hgb 11.3 L Hct 34.2 L MCV 91.7 MCH 30.3 MCHC 33.0 RDW 13.8 RDW Differential 45.1 H Plt Count 251 MPV 10.7 Immature Gran % (Auto) Neut % (Auto) Lymph % (Auto) [place] % (Auto) Eos % (Auto) Baso % (Auto) Absolute Neuts (auto) Absolute Lymphs (auto) Total Counted Diff Path Review Vag Amniotic Fld Detect Group B Strep DNA Negative Specimen Comment Not Reportable Blood Type Antibody Screen Medical Necessity - Tobacco Use Smoking Status: Light Smoker (<10/day) Assessment/Plan POD#1 37 6/7 wk EGA SROM. Prior C/S Repeat C/S Stable postop . Incision CDI. PE benign. CBC wnl. Inc diet and activity as tolerated. D/C landin for voiding trial today. May shower. s/L for continued toradol. Begin po meds Continue routine postop care.
[2018-07-01] MEDS: Senna/Docusate Sodium 1 Tablet PO (09:48)
[2018-07-01] MEDS: 0.9% Saline Lock 10 ML Syringe IV ×3 (09:48→17:54)
[2018-07-01] MEDS: Prenatal Vits Tablet 1 TABLET PO (09:48)
[2018-07-01 12:33] LABS: Pathologist Review Reviewed
[2018-07-01] MEDS: Naproxen 250 MG Tablet PO (18:08)
[2018-07-02 02:35] VITALS: BP 131/68; PULSE 93; RESP 18; TEMP 36.6
[2018-07-02] MEDS: Cephalexin 500 MG Capsule PO ×3 (05:55→22:04)
[2018-07-02] MEDS: Naproxen 250 MG Tablet PO (07:37)
--- NOTE | 2018-07-02 07:54 | PCM.PN.OB ---
Subjective: POD#2 Repeat C/S SROM 37 6/7 wk EGA Very painful right now, tearful. Pain med due. Nursing well. Would like to stay. - Physical Exam General: Alert, Oriented x3, - - tearful, painful HEENT: Atraumatic Oral: Moist Mucosa Neck: Supple Abdomen: Soft - fundus firm and tender c/w postop status, 2 cm inferior to umbilicus Skin: Incision - Mepilex CDI. Neurological: Cranial nerves II-XII grossly intact Psych/Mental Status: Normal Affect, Appropriate Vital Signs Temp Pulse Resp BP Pulse Ox 97.8 F 93 18 131/68 H 97 07/02/18 02:35 07/02/18 02:35 07/02/18 02:35 07/02/18 02:35 07/01/18 19:51 Oxygen Delivery Method Room Air Weight: 97.4 kg Body Mass Index (BMI) 39.2 Intake and Output for Last 24 Hours 06/30/07/01/18 07/02/18 23:59 23:59 23:59 Intake Total 2227 / 2227 1811 / 1811 Output Total 900 / 900 1620 / 1620 Balance 1327 / 1327 191 / 191 Laboratory Tests Past 24 Hrs 06/30/18 13:35 Diff Path Review Reviewed Medical Necessity - Tobacco Use Smoking Status: Light Smoker (<10/day) Assessment/Plan POD#2 37 6/7 wk EGA SROM. Prior C/S Repeat C/S Stable postop . Incision CDI. PE benign. Plans to stay. Continue routine postop care.
[2018-07-02 08:05] VITALS: BP 111/50; PULSE 73; RESP 16; TEMP 36.6
[2018-07-02] MEDS: oxyCODONE 5 MG Tablet PO ×3 (11:11→22:03)
[2018-07-02] MEDS: Prenatal Vits Tablet 1 TABLET PO (11:39)
--- NOTE | 2018-07-02 14:33 | CASEMGMT ---
Social Work Labor and Delivery Unit PHQ9 notification received. Chart being reviewed. Plan: Will see mother of baby for a face to face interview on . -WILLIAMS Gamez, CUT OFF SAW OPERATOR PIPE BLANKS
[2018-07-02 14:40] VITALS: BP 143/73; PULSE 92; RESP 16; TEMP 36.8
[2018-07-02 20:35] VITALS: BP 135/70; PULSE 91; RESP 16; TEMP 36.4; O2SAT 96
[2018-07-03 03:10] VITALS: BP 113/76; PULSE 75; RESP 14; TEMP 36.5; O2SAT 96
[2018-07-03] MEDS: oxyCODONE 5 MG Tablet PO ×2 (04:26→08:51)
[2018-07-03] MEDS: Cephalexin 500 MG Capsule PO (06:26)
--- NOTE | 2018-07-03 08:22 | PCM.PN.OB ---
Subjective: Patient without complaints. Tolerating diet well. Positive flatus. Ready to go home today. - Physical Exam Vital Signs Temp Pulse Resp BP Pulse Ox 97.7 F L 75 14 113/76 96 07/03/18 03:10 07/03/18 03:10 07/03/18 03:10 07/03/18 03:10 07/03/18 03:10 Oxygen Delivery Method Room Air Weight: 214 lb 11.684 oz Body Mass Index (BMI) 39.2 Intake and Output for Last 24 Hours 07/01/18 07/02/18 07/03/18 23:59 23:59 23:59 Intake Total 1811 / 1811 Output Total 1620 / 1620 Balance 191 / 191 Wound is clean, dry, intact. Good urine output. Medical Necessity - Tobacco Use Smoking Status: Light Smoker (<10/day) Assessment/Plan Doing well postoperative day #3 status post repeat . Will release to home with routine instructions.
--- NOTE | 2018-07-03 08:26 | DS.PCM_ITS ---
Discharge Summary Date of Admission: 06/30/18 Date of Discharge: 07/03/18 Summary: Procedure: Repeat low transverse cervical section HPI: Uneventful care except for a prior . PE: Unremarkable. Hospital Course: The patient is a 23 year old who presented to [facility] with spontaneous rupture of membranes at home. She subsequently had a repeat C- section. Postoperatively she did well demonstrating a stable HGB on POD 1 and bowel fxn by POD 3 at which time it was felt she was ready for discharge. Homegoing Instruction: She was instructed not to drive for several days or if using narcotic pain medication, not to put anything in the vagina for 4 weeks, n ot to lift >25 lbs for 6 weeks and to call the office for an appointment in 2 weeks and 6 weeks. Discharge Medications: She was given a prescription for Oxycodone and Colace and also plans to use Aleve or Motrin or Tylenol at home as needed for pain and constipation. - Physical Exam Vital Signs Temp Pulse Resp BP Pulse Ox 97.7 F L 75 14 113/76 96 07/03/18 03:10 07/03/18 03:10 07/03/18 03:10 07/03/18 03:10 07/03/18 03:10 Oxygen Delivery Method Room Air Weight: 214 lb 11.684 oz Body Mass Index (BMI) 39.2 Intake and Output for Last 24 Hours 07/01/18 07/02/18 07/03/18 23:59 23:59 23:59 Intake Total 1811 / 1811 Output Total 1620 / 1620 Balance 191 / 191
[2018-07-03 08:50] VITALS: BP 114/63; PULSE 81; RESP 16; TEMP 36.7
[2018-07-03] MEDS: Senna/Docusate Sodium 1 Tablet PO (08:51)
[2018-07-03] MEDS: Prenatal Vits Tablet 1 TABLET PO (08:52)
[2018-07-03] MEDS: Naproxen 250 MG Tablet PO (11:48)
== END 2018-07-03 11:50 | disposition home or self-care (01) | DRG 540 ==
PROVIDERS: Admitting Provider Obstetrics & Gynecology; Referring Provider Obstetrics & Gynecology; Visit Provider Obstetrics & Gynecology
DX: O34.211 Maternal care for low transverse scar from previous cesarean delivery (principal); O99.334 Smoking (tobacco) complicating childbirth; Z3A.37 37 weeks gestation of pregnancy; Z37.0 Single live birth
CPT/HCPCS: 59025; 59050; 84112; 85025; 85027; 86850; 86900; 87081; 87653; 99218; J7120; A4216; G0378

== ENCOUNTER → 2019-06-29 16:50 | Outpatient (CLI) | payer MEDICAID, SELFPAY ==
[2018-06-30 12:54] VITALS: BMI 39.2
== END ==
PROVIDERS: Referring Provider Obstetrics & Gynecology; Visit Provider Obstetrics & Gynecology
DX: Z12.4 Encounter for screening for malignant neoplasm of cervix (principal)
CPT/HCPCS: 88175; G0145

== ENCOUNTER → 2019-11-22 17:29 | Outpatient (CLI) | payer MEDICAID, SELFPAY ==
[2018-06-30 12:54] VITALS: BMI 39.2
[2019-11-22 19:38] LABS: Chlamydia Trachomatis by PCR Negative (Negative); Neisserai gonorrhoeae by PCR Negative (Negative); Probe Check PASS; Sample Adequacy Control PASS; Specimen Processing Control PASS
== END ==
PROVIDERS: Referring Provider Obstetrics & Gynecology; Visit Provider Obstetrics & Gynecology
DX: Z11.3 Encounter for screening for infections with a predominantly sexual mode of transmission (principal)
CPT/HCPCS: 87491; 87591

== ENCOUNTER 2021-07-09 15:37 | Outpatient (CLI) | payer MEDICAID, SELFPAY ==
[2021-07-09 16:35] LABS: hCG Titer Quant., Serum 42 mIU/mL (1-3)
== END 2021-07-09 23:59 | disposition home or self-care (01) ==
PROVIDERS: Visit Provider Student in an Organized Health Care Education/Training Program
DX: O20.0 Threatened abortion (principal)
CPT/HCPCS: 36415; 84702

== ENCOUNTER 2021-07-09 22:41 | Emergency (ER) | payer MEDICAID, SELFPAY ==
[2021-07-09 22:42] VITALS: BP 155/93; PULSE 89; RESP 18; TEMP 36.6; O2SAT 100; BMI 37.5
--- NOTE | 2021-07-09 23:02 | US_ITS ---
STUDY: FIRST TRIMESTER OBSTETRICAL ULTRASOUND REASON FOR EXAM: Female, 26 years old vaginal bleeding, pt sts 4-5 weeks LMP: 06/06/2021 TECHNIQUE: Transvaginal TECHNICAL QUALITY: Adequate. PRIOR ULTRASOUND: None. FINDINGS: There is no demonstrated intrauterine gestational sac. The uterus measures 9.3 x 5.4 x 4.9. There is no demonstrated uterine fibroid. The cervix is closed. The endometrium is thickened measures 12.9 mm in thickness may represent decidual reaction. The right ovary measures 2.8 x 3.5 x 1.8 cm. There is no right ovarian cyst. There is no visualized right adnexal mass or complex lesion. The left ovary measures 3.6 x 2.4 x 2.5 cm. There is no left ovarian cyst. There is no visualized left adnexal mass or complex lesion. There is no fluid in the cul de sac. US/Transvaginal w/Preg US IMPRESSION: No IUP seen. Ectopic cannot be excluded. Follow-up is recommended. Electronically Signed: Gaurav Patten MD at 23:58 EST ,
[2021-07-09 23:06] LABS: Bacteria 0 SEEN /hpf (None Seen); Mucous, Urine 0 SEEN /hpf (<or=2+); Red Blood Cells-Urine 0 SEEN /hpf (0-5); White Blood Cells 0 SEEN /hpf (0-5)
[2021-07-09 23:13] LABS: Color, Urine Yellow (Yellow); Glucose, Dipstick Normal (Normal); Ketone-Dipstick Negative (Negative); Leukocyte Esterase-Dipstick Negative /ul (Negative); Nitrite-Dipstick Negative (Negative); Occult Blood-Urine 25 /ul (Negative); Protein-Dipstick Negative (Negative); Urine Bilirubin Dipstick Negative (Negative); Urine Clarity Clear (Clear); Urine Urobilinogen Normal (Normal)
[2021-07-09 23:21] LABS: Squamous Epithelial Cells - UA 0-5 SEEN /hpf (5-10)
--- NOTE | 2021-07-09 23:21 | ED.VIS.FEGU ---
HPI HPI - Female History of Present Illness Chief Complaint: Vag Bld, Preg Narrative Narrative: 26-year-old female approximately 4 and half weeks with vaginal bleeding and passage of tissue today. She called her FINANCIAL ACCOUNTANT who sent her in for blood work and she had a quant of 42. She continues to have some bleeding and some mild abdominal cramping. She denies fever or chills. She denies urinary complaints. She does complain of some bilateral lower back pain. Patient does not feel lightheaded or dizzy. PFSH [facility] Medical History 36 weeks gestation of Decreased movement Home Medications PNV 118-[id number]-[id number]-3-fish oil [ with DHA-Folic Acid] 1 tab PO DAILY 06/30/18 [History Last Taken 06/30/18 08:00] acetaminophen [Tylenol] 650 mg PO PRN PRN 06/30/18 [History Last Taken 06/30/18 09:00] cephalexin [Keflex] 500 mg PO TID 06/30/18 [History Last Taken 06/30/18 08:00] docusate sodium [Colace] 100 mg PO BID #30 capsule 06/30/18 [Rx Last Taken Unknown] naproxen 250 - 500 mg PO TID PRN PRN #30 tab 06/30/18 [Rx Last Taken Unknown] polyethylene glycol 3350 17 g PO DAILY PRN #14 packet 06/30/18 [Rx Last Taken Unknown] pseudoephedrine-guaifenesin [Mucinex D Maximum Strength] 1 tab PO Q12H PRN PRN 06/30/18 [History Last Taken 06/30/18 09:00] ondansetron 4 mg PO Q8H PRN #12 tab 07/10/21 [Rx Last Taken Unknown] oxycodone-acetaminophen [Endocet] 1 tab PO Q8H PRN 3 Days #12 tab 07/10/21 [Rx Last Taken Unknown] Allergy/AdvReac Type Severity Reaction Status Date / Time Penicillins [PCN] Allergy Rash Verified 07/09/21 22:45 Social History Smoking Status: Current every day smoker tobacco type: cigarettes ROS ROS ED Constitutional Constitutional ED: Denies chills or fever(s) Eyes Eyes: Denies blurry vision or diplopia ENT ENT ED: Denies rhinorrhea or sore throat Cardiovascular Cardiovascular: Denies chest pain or palpitations Respiratory/Chest Respiratory/Chest: Denies cough, dyspnea or stridor Gastrointestinal Gastrointestinal: Reports abdominal pain and nausea; Denies diarrhea or vomiting Genitourinary Genitourinary ED: Reports other Details: Vaginal bleeding and passage of tissue and clots Musculoskeletal Musculoskeletal: Denies arthralgias or myalgias Integumentary Denies Abrasions or rash Neurologic Neurologic: Denies headache(s) or paresthesias Psychiatric Psychiatric: Denies anxiety or depression EXAM Physical Exam Const Vital Signs: 07/09/21 22:42 Temperature 97.9 F Temperature Source Temporal Pulse Rate 89 Respiratory Rate 18 Blood Pressure 155/93 H Blood Pressure Mean 113 Pulse Ox 100 Oxygen Delivery Method Room Air Positive well nourished General Appearance ED: NAD; Negative for pallor HEENT Reports moist mucous membranes Negative for trauma Eyes PERRL and EOMs intact bilaterally Chest Wall inspection of chest normal and palpation of chest normal Resp normal respiratory effort and clear to auscultation bilaterally Cardio regular rate and regular rhythm GI normal to inspection, nondistended, normoactive bowel sounds no CVA tenderness Neuro oriented x3 Sensorium / Orientation: alert Psych mental status grossly normal Skin no rashes or lesions noted General Skin Exam: Negative for jaundice or pallor MDM MDM MDM Narrative Medical decision making narrative: Patient presenting with concern for miscarriage. She states that she has had vaginal bleeding, clots, tissue passage. Her quant today was 42. Patient 4-1/2 weeks . She is not having any significant abdominal pain but does complain of lower back pain. On exam this is not reproducible. She has no CVA tenderness. Urinalysis shows some blood however the patient is having likely a miscarriage. She is Rh+. She does not have significant blood loss I do not believe she needs a CBC. I did obtain transvaginal ultrasound which shows no IUP. Ectopic cannot be excluded due to the low hCG but I think most likely the patient has had a miscarriage. I spoke with Dr. Zara Simeon who agreed. She will obtain follow-up with her in the next couple days. Patient was given pain and nausea medication for home. Patient given return precautions. Impression: 1. Miscarriage Lab Data Labs: Laboratory Results - last 24 hr 02/28/22 22:55 Urine Color Yellow Urine Clarity Clear Urine pH 7.0 Ur Specific [place] 1.010 Urine Protein Negative Urine Glucose (UA) Normal Urine Ketones Negative Urine Occult Blood 25 H Urine Nitrite Negative Urine Bilirubin Negative Urine Urobilinogen Normal Ur Leukocyte Esterase Negative Urine RBC 0 SEEN Urine WBC 0 SEEN Ur Squamous Epith Cells 0-5 SEEN Urine Bacteria 0 SEEN Urine Mucus 0 SEEN Radiography Diagnostic Testing: Clinical Impression(s) from Imaging Studies Obstetrics Ultrasound 07/09/21 23:02 IMPRESSION: No IUP seen. Ectopic cannot be excluded. Follow-up is recommended. Electronically Signed: Gaurav Patten MD at 23:58 EST , Discharge Plan Triage Chief Complaint: Vag Bld, Preg ED Provider: Jacques Haley Dx/Rx/DC Orders Instructions: ED MISCARRIAGE Incomplete Prescriptions: New oxycodone-acetaminophen [Endocet] 5-325 mg tablet 1 tab PO Q8H PRN (Reason: pain) 3 Days Qty: 12 RF: 0 ondansetron 4 mg tablet,disintegrating 4 mg PO Q8H PRN (Reason: nausea and vomiting) Qty: 12 RF: 0 No Action acetaminophen [Tylenol] 325 MG tablet 650 mg PO PRN PRN (Reason: Headache) RF: 0 pseudoephedrine-guaifenesin [Mucinex D Maximum Strength] 1 EACH tablet extended release 12 hr 1 tab PO Q12H PRN PRN (Reason: Chest Congestion/Secretions) RF: 0 cephalexin [Keflex] 500 MG capsule 500 mg PO TID RF: 0 PNV 125-jrloi-jktvy-3-fish oil [ with DHA-Folic Acid] 1 EACH tablet,chewable 1 tab PO DAILY RF: 0 polyethylene glycol 3350 17 GM powder in packet 17 g PO DAILY PRN (Reason: Constipation) Qty: 14 RF: 0 naproxen 250 MG tablet 250 - 500 mg PO TID PRN PRN (Reason: Mild-Mod Pain (1-5/10)) Qty: 30 RF: 0 docusate sodium [DOK] 100 MG capsule 100 mg PO BID Qty: 30 RF: 0 Primary Care Provider: Bri Brasher Referrals: Zara Simeon DO [STAFF PHYSICIAN] - As soon as possible Bri Brasher, DANIELITO [Primary Care Provider] - Disposition Disposition: Home, Self Care
[2021-07-10] MEDS: oxyCODONE 5 MG Tablet PO (00:53)
[2021-07-10] MEDS: Ondansetron ODT 4 MG Tablet PO (00:53)
[2021-07-10 00:54] VITALS: BP 142/78; PULSE 87; RESP 16; O2SAT 98
== END 2021-07-10 00:58 | disposition home or self-care (01) ==
PROVIDERS: Emergency Provider Student in an Organized Health Care Education/Training Program; PCP Physician Assistant; Visit Provider Student in an Organized Health Care Education/Training Program
DX: O03.9 Complete or unspecified spontaneous abortion without complication (principal); F17.210 Nicotine dependence, cigarettes, uncomplicated; O20.0 Threatened abortion
CPT/HCPCS: 36415; 76817; 81001; 84702; 99283

== ENCOUNTER 2021-07-11 15:06 | Outpatient (CLI) | payer MEDICAID, SELFPAY ==
[2021-07-11 16:39] LABS: hCG Titer Quant., Serum 64 mIU/mL (1-3)
== END 2021-07-11 23:59 | disposition home or self-care (01) ==
LOC: WOBLAB 15:06
PROVIDERS: PCP Physician Assistant; Visit Provider Obstetrics & Gynecology
DX: O20.0 Threatened abortion (principal); Z3A.00 Weeks of gestation of pregnancy not specified
CPT/HCPCS: 36415; 84702

== ENCOUNTER 2021-07-16 09:26 | Outpatient (CLI) | payer MEDICAID, SELFPAY ==
[2021-07-16 10:13] LABS: hCG Titer Quant., Serum 670 mIU/mL (1-3)
== END 2021-07-16 23:59 | disposition home or self-care (01) ==
LOC: WOBLAB 09:26
PROVIDERS: PCP Physician Assistant; Visit Provider Obstetrics & Gynecology
DX: O20.0 Threatened abortion (principal); Z3A.00 Weeks of gestation of pregnancy not specified
CPT/HCPCS: 36415; 84702

== ENCOUNTER 2021-07-18 09:09 | Outpatient (CLI) | payer MEDICAID, SELFPAY ==
[2021-07-18 11:23] LABS: hCG Titer Quant., Serum 1299 mIU/mL (1-3)
== END 2021-07-18 23:59 | disposition home or self-care (01) ==
LOC: WOBLAB 09:10
PROVIDERS: PCP Physician Assistant; Visit Provider Obstetrics & Gynecology
DX: O03.9 Complete or unspecified spontaneous abortion without complication (principal)
CPT/HCPCS: 36415; 84702

== ENCOUNTER 2021-07-27 00:30 | Emergency (ER) | payer MEDICAID, SELFPAY ==
[2021-07-27 00:31] VITALS: BP 149/80; PULSE 100; PULSE 111; RESP 16; TEMP 37.1; O2SAT 100; O2SAT 99; BMI 39.2
--- NOTE | 2021-07-27 00:47 | US_ITS ---
ACR Level 3 findings have been noted. An addendum which confirms receipt of the report will follow. EXAM: US , TRANSVAGINAL : 1995 CLINICAL INDICATION: pelvic pain TECHNIQUE: Real-time transvaginal obstetrical ultrasound of the maternal pelvis and a first trimester with image documentation. Transvaginal imaging was used for better evaluation of the fetus and adnexa. This report was created using [email or web address] report generation technology. COMPARISON: None. FINDINGS: GESTATION: No evidence of intrauterine . PLACENTA/AMNIOTIC FLUID: Cannot be adequately evaluated due to the early gestational age. UTERUS/CERVIX: Uterus: 8.8 x 5.3 x 4.3 cm. No myometrial mass. OVARIES: Complex left adnexal lesion separate from the ovary measuring up to 2.7 cm. Right ovary: 4.2 x 2.5 x 2.5 cm. Left ovary: 3.2 x 2.3 x 3.9 cm. FREE FLUID: Trace amount of simple free fluid. US/Transvaginal w/Preg US IMPRESSION: Complex left adnexal lesion separate from the ovary measuring up to 2.7 cm. This may indicate an ectopic . No evidence of intrauterine . at 0252 Reported and signed by: Alejandro Alarcon MD Electronically Signed: Alejandro Alarcon MD at 2:52 EDT ,
[2021-07-27 01:07] LABS: Mucous, Urine 0 SEEN /hpf (<or=2+); Red Blood Cells-Urine 0 SEEN /hpf (0-5)
[2021-07-27 01:08] LABS: Color, Urine Yellow (Yellow); Glucose, Dipstick Normal (Normal); Ketone-Dipstick Negative (Negative); Leukocyte Esterase-Dipstick 25 /ul (Negative); Nitrite-Dipstick Negative (Negative); Occult Blood-Urine 10 /ul (Negative); Protein-Dipstick Negative (Negative); Specific Gravity, Urine 1.025 (1.002-1.030); Urine Bilirubin Dipstick Negative (Negative); Urine Clarity Clear (Clear); Urine Urobilinogen Normal (Normal)
[2021-07-27 01:25] LABS: Bacteria RARE /hpf (None Seen); Squamous Epithelial Cells - UA 0-5 SEEN /hpf (5-10); White Blood Cells 0-5 SEEN /hpf (0-5)
[2021-07-27 01:27] LABS: Absolute Neutrophil Count 9.1 X10^3/uL (2.0-7.7); Basophil# 0.07 X10^3/uL; Basophil% 0.5 % (0-1); Eosinophil# 0.17 X10^3/uL; Eosinophils% 1.2 % (0-5); Hematocrit 40.3 % (37-47); Hemoglobin 14.3 g/dL (12.0-15.0); Mean Corp Hgb Conc 35.5 g/dL (32-36); Mean Corpuscular Hgb 30.8 pg (27.0-32.0); Mean Corpuscular Volume 86.9 fL (81-99); Mean Platelet Vol. 9.5 fl (6.2-12.0); Monocyte# 0.77 X10^3/uL; Monocyte% 5.5 % (0-10); NRBC Flagged by Analyzer 0 % (0-5); Neutrophil # 9.09 X10^3/uL (2.7-7.7); Neutrophil % 64.5 % (47-70); Platelet Count 364 K/mm3 (150-450); RBC Distribution Width CV 13.2 % (11.6-14.6); RBC Distribution Width SD 41.5 fl (35.1-43.9); Red Blood Count 4.64 M/mm3 (4.2-5.4); White Blood Count 14.1 K/mm3 (4.4-11.0)
--- NOTE | 2021-07-27 01:41 | EDS_ITS ---
HPI HPI - Female History of Present Illness Chief Complaint: Narrative Narrative: Patient is a G3, P1 female who states she is approximately 7 weeks . She states she came to the ER early in the and had an ultrasound which did not show anything within the uterus. Patient states she is been following with OB and that her levels have been rising and her cervix is closed consistent with a progressing . Patient states that today she just felt off but starting around 4 PM developed left-sided abdominal pain that is more cramping in nature. She states that there is been no vomiting diarrhea dysuria vaginal bleeding or discharge associated with this. However as she is unsure if the is truly in the uterus or not she was concerned about this increased pain and comes in for evaluation [facility] Medical History 36 weeks gestation of Decreased movement Home Medications with DHA-Folic Acid 1 tab PO DAILY 06/30/18 [History Last Taken 06/30/18 08:00] acetaminophen [Tylenol] 650 mg PO PRN PRN 06/30/18 [History Last Taken 06/30/18 09:00] pseudoephedrine-guaifenesin [Mucinex D Maximum Strength] 1 tab PO Q12H PRN PRN 06/30/18 [History Last Taken 06/30/18 09:00] ondansetron 4 mg PO Q8H PRN #12 tab 07/10/21 [Rx Last Taken Unknown] ondansetron 4 mg PO TID PRN PRN #21 tab 07/27/21 [Rx Last Taken Unknown] oxycodone-acetaminophen [Percocet] 1 tab PO Q6H PRN 3 Days #12 tab 07/27/21 [Rx Last Taken Unknown] Allergy/AdvReac Type Severity Reaction Status Date / Time Penicillins [PCN] Allergy Rash Verified 07/09/21 22:45 Social History Smoking Status: Current every day smoker tobacco type: cigarettes ROS ROS ED Constitutional Constitutional ED: Denies chills or fever(s) ENT ENT ED: Denies sore throat Cardiovascular Cardiovascular: Denies chest pain Respiratory/Chest Respiratory/Chest: Denies cough or dyspnea Gastrointestinal Gastrointestinal: Reports abdominal pain and nausea; Denies diarrhea or vomiting Genitourinary Genitourinary ED: Denies dysuria or hematuria Musculoskeletal Musculoskeletal: Denies myalgias Integumentary Denies rash Neurologic Neurologic: Denies headache(s) Hematologic/Lymphatic Hematologic/Lymphatic: Denies easy bleeding or easy bruising EXAM Physical Exam Const Vital Signs: 07/27/21 00:31 Temperature 98.7 F Temperature Source Oral Pulse Rate 100 Respiratory Rate 16 Blood Pressure 149/80 H Blood Pressure Mean 103 Pulse Ox 100 Oxygen Delivery Method Room Air Positive well nourished and well developed General Appearance ED: well developed HEENT Reports moist mucous membranes Eyes PERRL and EOMs intact bilaterally Neck supple Resp normal respiratory effort and clear to auscultation bilaterally Cardio regular rate and regular rhythm GI normal to inspection, nondistended, normoactive bowel sounds, soft to palpation, non-tender, non-distended and no masses GI Narrative: No voluntary guarding or rigidity no pulsatile mass Auscultation: normoactive bowel sounds Palpation: soft Back/Spine no CVA tenderness Extremity normal to inspection Neuro oriented x3 and CN's II-XII intact bilaterally Sensorium / Orientation: alert Psych mental status grossly normal Skin no rashes or lesions noted MDM MDM MDM Narrative Medical decision making narrative: Patient presented with complaint of pain in the left side abdomen but on exam she is soft and nonsurgical. She reported that she is approximately 7 weeks and based on her new onset pain there is concern for ectopic . Patient blood work was obtained which showed no clinically significant findings other than the fact her quantitative hCG level has decreased from approximately 5702-0454 over the last 9 days. The ultrasound obtained this evening shows a 2.7 cm mass separate of the uterus on the left side concerning for ectopic with no IUP. I discussed the case with GERMINATION WORKER on-call because of this. The patient has stable vitals and stable labs her pain is controlled. She is not having fany vaginal hemorrhage. Therefore they feel patient can have methotrexate and follow-up on an outpatient basis. The methotrexate was ordered from the ER and will be given prior to discharge. The plan of care was discussed with the patient and she is agreeable to it at this time. She will return if she has increasing abdominal pain or development of vaginal bleeding Lab Data Attestation: I reviewed the patient's lab results. Labs: Laboratory Results - last 24 hr 07/27/21 07/27/2122 01:00 01:00 01:00 WBC 14.1 H RBC 4.64 Hgb 14.3 Hct 40.3 MCV 86.9 MCH 30.8 MCHC 35.5 RDW Std Deviation 41.5 RDW Coeff of Radha 13.2 Plt Count 364 MPV 9.5 Immature Gran % (Auto) 1.300 H Neut % (Auto) 64.5 Lymph % (Auto) 27.0 [place] % (Auto) 5.5 Eos % (Auto) 1.2 Baso % (Auto) 0.5 Absolute Neuts (auto) 9.1 H Absolute Lymphs (auto) 3.80 Nucleated RBC % 0 PT INR APTT Sodium 140 Potassium 3.5 Chloride 109 H Carbon Dioxide 26.0 Anion Gap 5 BUN 11 Creatinine 0.67 Estim Creat Clear Calc 100.64 Est GFR (MDRD) Af Amer 137 Est GFR (MDRD) Non-Af 113 BUN/Creatinine Ratio 16.4 Glucose 100 Calcium 9.4 Total Bilirubin 0.20 Direct Bilirubin 0.07 AST 17 ALT 28 Alkaline Phosphatase 52 Total Protein 7.5 Albumin 3.8 Globulin 3.7 Lipase 98 HCG, Quant 1051 H Urine Color Urine Clarity Urine pH Ur Specific [place] Urine Protein Urine Glucose (UA) Urine Ketones Urine Occult Blood Urine Nitrite Urine Bilirubin Urine Urobilinogen Ur Leukocyte Esterase Urine RBC Urine WBC Ur Squamous Epith Cells Urine Bacteria Urine Mucus 07/27/21 07/27/21 01:05 02:40 WBC RBC Hgb Hct MCV MCH MCHC RDW Std Deviation RDW Coeff of Radha Plt Count MPV Immature Gran % (Auto) Neut % (Auto) Lymph % (Auto) [place] % (Auto) Eos % (Auto) Baso % (Auto) Absolute Neuts (auto) Absolute Lymphs (auto) Nucleated RBC % PT 13.5 INR 1.1 APTT 27.5 Sodium Potassium Chloride Carbon Dioxide Anion Gap BUN Creatinine Estim Creat Clear Calc Est GFR (MDRD) Af Amer Est GFR (MDRD) Non-Af BUN/Creatinine Ratio Glucose Calcium Total Bilirubin Direct Bilirubin AST ALT Alkaline Phosphatase Total Protein Albumin Globulin Lipase HCG, Quant Urine Color Yellow Urine Clarity Clear Urine pH 5.0 Ur Specific [place] 1.025 Urine Protein Negative Urine Glucose (UA) Normal Urine Ketones Negative Urine Occult Blood 10 H Urine Nitrite Negative Urine Bilirubin Negative Urine Urobilinogen Normal Ur Leukocyte Esterase 25 H Urine RBC 0 SEEN Urine WBC 0-5 SEEN Ur Squamous Epith Cells 0-5 SEEN Urine Bacteria RARE Urine Mucus 0 SEEN Radiography Diagnostic Testing: Clinical Impression(s) from Imaging Studies Obstetrics Ultrasound 07/27/21 00:47 IMPRESSION: Complex left adnexal lesion separate from the ovary measuring up to 2.7 cm. This may indicate an ectopic . No evidence of intrauterine . at 0252 Reported and signed by: Alejandro Alarcon MD Electronically Signed: Alejanrdo Alarcon MD at 2:52 EDT Reading Location ID and State: [address] [place] [address] Tel , Service support , ADDENDUM: 07/27/21 0304 IMPRESSION: Complex left adnexal lesion separate from the ovary measuring up to 2.7 cm. This may indicate an ectopic . No evidence of intrauterine . at 0252 Reported and signed by: Alejandro Alarcon MD N.B. : Ricki Nayak DO, confirmed on 07/27/2021 02:57:46 (ET) that the healthcare facility has received the radiology report. Electronically Signed: Alejandro Alarcon MD at 2:52 EDT Reading Location ID and State: [facility] / [place] Tel , Service support , Discharge Plan Triage Chief Complaint: ED Provider: Ricki Nayak Dx/Rx/DC Orders Clinical Impression: Ectopic Instructions: Ectopic Prescriptions: New ondansetron 4 mg tablet,disintegrating 4 mg PO TID PRN PRN (Reason: nausea and vomiting) Qty: 21 RF: 0 oxycodone-acetaminophen [Percocet] 5-325 mg tablet 1 tab PO Q6H PRN (Reason: pain) 3 Days Qty: 12 RF: 0 No Action acetaminophen [Tylenol] 325 MG tablet 650 mg PO PRN PRN (Reason: Headache) RF: 0 pseudoephedrine-guaifenesin [Mucinex D Maximum Strength] 1 EACH tablet extended release 12 hr 1 tab PO Q12H PRN PRN (Reason: Chest Congestion/Secretions) RF: 0 with DHA-Folic Acid 1 EACH tablet,chewable 1 tab PO DAILY RF: 0 ondansetron 4 mg tablet,disintegrating 4 mg PO Q8H PRN (Reason: nausea and vomiting) Qty: 12 RF: 0 Primary Care Provider: Bri Brasher Referrals: Katharine Crowder MD [STAFF PHYSICIAN] - As soon as possible Bri Brasher PA [Primary Care Provider] - Activity Restrictions/Additional Instructions: Please follow-up with the GERMINATION WORKER later today. If you develop increasing abdominal pain or fany vaginal bleeding please return to the ER for repeat evaluation Disposition Disposition: Home, Self Care
[2021-07-27 01:43] LABS: AST(SGOT) 17 U/L (15-37); Alanine Aminotransfer ALT/SGPT 28 U/L (13-56); Albumin, Serum 3.8 g/dL (3.2-5.0); Alkaline Phosphatase 52 U/L (45-117); Anion Gap 5 (5-15); BUN 11 mg/dL (7-18); BUN/Creat Ratio 16.4 RATIO (10-20); Bilirubin, Direct 0.07 mg/dL (0.00-0.30); Calcium,Total 9.4 mg/dL (8.5-10.1); Chloride 109 mmol/L (98-107); Creatinine, Serum 0.67 mg/dL (0.55-1.02); EST Glomerular Filtration Rate 113 mL/min (>60); Est Glom Filt Rate - Afr Amer 137 mL/min (>60); Estimated Creatinine Clearance 100.64 ml/min; Globulin 3.7 g/dL (2.2-4.2); Glucose 100 mg/dL (74-106); Lipase 98 U/L (73-393); Potassium 3.5 mmol/L (3.5-5.1); Protein, Total 7.5 g/dL (6.4-8.2); Sodium Level 140 mmol/L (136-145)
[2021-07-27 02:06] LABS: hCG Titer Quant., Serum 1051 mIU/mL (1-3)
[2021-07-27 03:00] LABS: International Normalized Ratio 1.1; Partial Thromboplast Time 27.5 Seconds (24.1-36.2); Prothrombin Time (Protime)PT. 13.5 SECONDS (11.7-14.9)
[2021-07-27 04:47] VITALS: BP 142/60; PULSE 78; RESP 18
== END 2021-07-27 04:48 | disposition home or self-care (01) ==
PROVIDERS: Emergency Provider Emergency Medicine; PCP Physician Assistant; Visit Provider Emergency Medicine
DX: O00.90 Unspecified ectopic pregnancy without intrauterine pregnancy (principal); O99.331 Smoking (tobacco) complicating pregnancy, first trimester; F17.210 Nicotine dependence, cigarettes, uncomplicated; Z3A.01 Less than 8 weeks gestation of pregnancy
CPT/HCPCS: 76817; 80048; 80076; 81001; 83690; 84702; 85025; 85610; 85730; 86850; 86900; 86901; 96374; 99282; A4216; J9250

== ENCOUNTER 2021-08-02 12:10 | Outpatient (CLI) | payer MEDICAID, SELFPAY ==
[2021-08-02 14:32] LABS: Hematocrit 45.7 % (37-47); Hemoglobin 15.7 g/dL (12.0-15.0); Mean Corp Hgb Conc 34.4 g/dL (32-36); Mean Corpuscular Hgb 30.3 pg (27.0-32.0); Mean Corpuscular Volume 88.1 fL (81-99); Mean Platelet Vol. 9.6 fl (6.2-12.0); Platelet Count 423 K/mm3 (150-450); RBC Distribution Width CV 13.3 % (11.6-14.6); RBC Distribution Width SD 42.5 fl (35.1-43.9); Red Blood Count 5.19 M/mm3 (4.2-5.4); White Blood Count 10.2 K/mm3 (4.4-11.0)
[2021-08-02 14:39] LABS: Alanine Aminotransfer ALT/SGPT 65 U/L (13-56); Creatinine, Serum 0.78 mg/dL (0.55-1.02); EST Glomerular Filtration Rate 94 mL/min (>60); Est Glom Filt Rate - Afr Amer 114 mL/min (>60)
[2021-08-02 14:45] LABS: hCG Titer Quant., Serum 40 mIU/mL (1-3)
== END 2021-08-02 23:59 | disposition home or self-care (01) ==
PROVIDERS: Obstetrics & Gynecology; PCP Physician Assistant; Referring Provider Obstetrics & Gynecology; Visit Provider Obstetrics & Gynecology
DX: O00.90 Unspecified ectopic pregnancy without intrauterine pregnancy (principal)
CPT/HCPCS: 36415; 82565; 84460; 84702; 85027

== ENCOUNTER 2021-08-09 12:57 | Outpatient (CLI) | payer MEDICAID, SELFPAY ==
[2021-08-09 15:22] LABS: hCG Titer Quant., Serum 4 mIU/mL (1-3)
== END 2021-08-09 23:59 | disposition home or self-care (01) ==
LOC: WOBLAB 13:01
PROVIDERS: PCP Physician Assistant; Visit Provider Obstetrics & Gynecology
DX: O00.90 Unspecified ectopic pregnancy without intrauterine pregnancy (principal)
CPT/HCPCS: 36415; 84702

== ENCOUNTER 2021-08-27 09:54 | Outpatient (CLI) | payer MEDICAID, SELFPAY ==
[2021-08-27 12:24] LABS: hCG Titer Quant., Serum < 1 mIU/mL (1-3)
== END 2021-08-27 23:59 | disposition home or self-care (01) ==
LOC: WOBLAB 09:55
PROVIDERS: PCP Physician Assistant; Visit Provider Obstetrics & Gynecology
DX: O00.90 Unspecified ectopic pregnancy without intrauterine pregnancy (principal)
CPT/HCPCS: 36415; 84702

== ENCOUNTER 2022-02-23 21:59 | Emergency (ER) | payer MEDICAID, SELFPAY ==
[2022-02-23 22:00] VITALS: BP 147/100; PULSE 105; RESP 15; TEMP 36.8; O2SAT 98; BMI 40.7
--- NOTE | 2022-02-23 22:18 | EX.ED.DYSGE1 ---
HPI History of Present Illness Chief Complaint: Abd Pain Narrative Narrative: Please see completed note. [facility] Medical History 36 weeks gestation of Decreased movement Home Medications cephalexin 500 mg capsule 500 mg PO TID #21 caps 02/24/22 [Rx Last Taken Unknown] Allergy/AdvReac Type Severity Reaction Status Date / Time Penicillins [PCN] Allergy Rash Verified 02/23/22 22:00 Social History Smoking Status: Current every day smoker tobacco type: cigarettes EXAM Physical Exam Const Vital Signs: 02/23/22 22:00 Temperature 98.2 F Temperature Source Temporal Pulse Rate 105 H Respiratory Rate 15 Blood Pressure 147/100 H Blood Pressure Mean 115 Pulse Ox 98 Oxygen Delivery Method Room Air [facility] Lab Data Labs: Laboratory Results - last 24 hr 02/23/22 02/23/22 02/23/22 22:50 22:50 22:50 WBC 14.1 H RBC 4.64 Hgb 14.3 Hct 41.6 MCV 89.7 MCH 30.8 MCHC 34.4 RDW Std Deviation 44.3 H RDW Coeff of Radha 13.6 Plt Count 397 MPV 9.5 Immature Gran % (Auto) 1.100 H Neut % (Auto) 61.0 Lymph % (Auto) 31.3 [place] % (Auto) 4.9 Eos % (Auto) 1.3 Baso % (Auto) 0.4 Absolute Neuts (auto) 8.6 H Absolute Lymphs (auto) 4.42 Nucleated RBC % 0 Sodium 140 Potassium 3.5 Chloride 110 H Carbon Dioxide 24.0 Anion Gap 6 BUN 9 Creatinine 0.63 Estim Creat Clear Calc 107.03 Est GFR (MDRD) Af Amer 145 Est GFR (MDRD) Non-Af 120 BUN/Creatinine Ratio 14.2 Glucose 95 Calcium 9.1 Total Bilirubin 0.20 AST 28 ALT 39 Alkaline Phosphatase 47 Total Protein 7.4 Albumin 3.6 Globulin 3.8 Albumin/Globulin Ratio 0.9 Lipase 94 HCG, Quant Urine Color Urine Clarity Urine pH Ur Specific [place] Urine Protein Urine Glucose (UA) Urine Ketones Urine Occult Blood Urine Nitrite Urine Bilirubin Urine Urobilinogen Ur Leukocyte Esterase Urine RBC Urine WBC Ur Squamous Epith Cells Urine Bacteria Urine Mucus Blood Type A POSITIVE 02/23/22 02/24/22 22:50 01:20 WBC RBC Hgb Hct MCV MCH MCHC RDW Std Deviation RDW Coeff of Radha Plt Count MPV Immature Gran % (Auto) Neut % (Auto) Lymph % (Auto) [place] % (Auto) Eos % (Auto) Baso % (Auto) Absolute Neuts (auto) Absolute Lymphs (auto) Nucleated RBC % Sodium Potassium Chloride Carbon Dioxide Anion Gap BUN Creatinine Estim Creat Clear Calc Est GFR (MDRD) Af Amer Est GFR (MDRD) Non-Af BUN/Creatinine Ratio Glucose Calcium Total Bilirubin AST ALT Alkaline Phosphatase Total Protein Albumin Globulin Albumin/Globulin Ratio Lipase HCG, Quant 4016 H Urine Color Straw Urine Clarity Clear Urine pH 7.0 Ur Specific [place] 1.010 Urine Protein Negative Urine Glucose (UA) Normal Urine Ketones Negative Urine Occult Blood Negative Urine Nitrite Negative Urine Bilirubin Negative Urine Urobilinogen Normal Ur Leukocyte Esterase 25 H Urine RBC 0 SEEN Urine WBC 0 SEEN Ur Squamous Epith Cells 0-5 SEEN Urine Bacteria 0 SEEN Urine Mucus 0 SEEN Blood Type Radiography Diagnostic Testing: Clinical Impression(s) from Imaging Studies Obstetrics Ultrasound 02/23/22 22:39 IMPRESSION: No IUP seen. Ectopic can''t be excluded. Follow-up is recommended. Electronically Signed: Gaurav Patten MD at 0:46 EDT , Discharge Plan Triage Chief Complaint: Abd Pain ED Provider: Ab Flood Dx/Rx/DC Orders Clinical Impression: , Abdominal pain, UTI (urinary tract infection), Leukocytosis Instructions: Ectopic Prescriptions: New cephalexin 500 mg capsule 500 mg PO TID Qty: 21 0RF Primary Care Provider: Bri Brasher Referrals: Bri Brasher, DANIELITO [Primary Care Provider] - Activity Restrictions/Additional Instructions: Please return if you develop sudden increased abdominal pain, if you develop nausea or vomiting or if he cannot tolerate medicine or food by mouth. Please return if develop heavy vaginal bleeding, passage of tissue or severe abdominal cramping. Disposition Disposition: Home, Self Care Discharge Date/Time: 02/24/22 01:29
--- NOTE | 2022-02-23 22:18 | EX.ED.DYSGE1 ---
HPI History of Present Illness Chief Complaint: Abd Pain Narrative Narrative: 26-year-old female here for abdominal pain. She states she has lower abdominal pain is crampy. The pain is nonradiating. Is associated with increased frequency of urination. Denies any vaginal bleeding or discharge. States her last period was in January she is approximately 5 weeks . Denies any vomiting, fever. Does note nausea. Notes history of 2 C-sections. Old chart reviewed: No recent advanced imaging of the abdomen or pelvis History of ectopic history of threatened miscarriage [facility] Medical History 36 weeks gestation of Decreased movement Home Medications cephalexin 500 mg capsule 500 mg PO TID #21 caps 02/24/22 [Rx Last Taken Unknown] Allergy/AdvReac Type Severity Reaction Status Date / Time Penicillins [PCN] Allergy Rash Verified 02/23/22 22:00 Social History Smoking Status: Current every day smoker tobacco type: cigarettes EXAM Physical Exam Narrative Exam Narrative: Nursing triage notes reviewed, Vital signs reviewed Constitutional: please see mdm HENT: MMM Eyes: Pupils equal round and reactive to light, Extraocular muscles intact Neck: No stridor, no JVD, full neck ROM Lungs: Clear to auscultation, No wheezing or rales. No increased work of breathing, no conversational dyspnea, no accessory muscle use, no nasal flaring. No respiratory distress noted Heart: Regular rate and rhythm, No murmurs, No rubs and No gallops, 2+ distal pulses (radial, femoral, posterior tibial) in all extremities Abdomen: Soft, there is no tenderness, rigidity, rebound or guarding, no obvious peritoneal signs, no palpable pulsatile abdominal masses, no auscultated abdominal bruit : No CVAT Extremities: No edema Neuro: No focal neurological deficits, cranial nerves II through XII intact, 5/5 strength in all extremities. Intact sensation to light touch in all extremities, 2+ reflexes bilateral patella dens. Normal gait. No ataxia. Skin: No rash or lesions noted Const Vital Signs: 02/23/22 22:00 Temperature 98.2 F Temperature Source Temporal Pulse Rate 105 H Respiratory Rate 15 Blood Pressure 147/100 H Blood Pressure Mean 115 Pulse Ox 98 Oxygen Delivery Method Room Air MDM MDM MDM Narrative Medical decision making narrative: 26-year-old female here with lower abdominal pain, urinary frequency in the setting of early without confirmatory ultrasound. She was hemodynamically stable, afebrile, nontoxic-appearing peer abdominal exam was benign and not consistent with an acute surgical abdomen. I did obtain a transvaginal ultrasound to rule out ectopic . Ordered labs including lipase, type and screen, quantitative hCG. Labs and images were remarkable for leukocytosis which appears to be baseline for the patient. No evidence of pancreatitis, no evidence of significant endorgan hypoperfusion, electrolyte abnormalities, hepatobiliary pathology. Patient's urine did show signs of inflammation we will treat for presumed UTI. In terms of ectopic ultrasound did not reveal intrauterine is ectopic cannot be completely excluded however patient had a nonperitoneal abdominal exam with stable vitals and labs are otherwise unremarkable she is appropriate for discharge and outpatient follow-up. Instructed the patient to follow with [employer] the next billable appointment return if her symptoms change or worsen particularly if she develops severe abdominal pain. Gave instructions to take vitamins and dicyclomine and Unisom for nausea and vomiting. Lab Data Attestation: I reviewed the patient's lab results. Lab results narrative: CBC with leukocytosis which is essentially baseline, no significant anemia or thrombocytopenia Lipase unremarkable CMP without evidence of significant electrolyte abnormalities, anion gap, SILVINO or hepatobiliary pathology Urine with signs of inflammation Blood type Rh+ no need for RhoGAM Labs: Laboratory Results - last 24 hr 02/23/22 02/23/22 02/23/22 22:50 22:50 22:50 WBC 14.1 H RBC 4.64 Hgb 14.3 Hct 41.6 MCV 89.7 MCH 30.8 MCHC 34.4 RDW Std Deviation 44.3 H RDW Coeff of Radha 13.6 Plt Count 397 MPV 9.5 Immature Gran % (Auto) 1.100 H Neut % (Auto) 61.0 Lymph % (Auto) 31.3 [place] % (Auto) 4.9 Eos % (Auto) 1.3 Baso % (Auto) 0.4 Absolute Neuts (auto) 8.6 H Absolute Lymphs (auto) 4.42 Nucleated RBC % 0 Sodium 140 Potassium 3.5 Chloride 110 H Carbon Dioxide 24.0 Anion Gap 6 BUN 9 Creatinine 0.63 Estim Creat Clear Calc 107.03 Est GFR (MDRD) Af Amer 145 Est GFR (MDRD) Non-Af 120 BUN/Creatinine Ratio 14.2 Glucose 95 Calcium 9.1 Total Bilirubin 0.20 AST 28 ALT 39 Alkaline Phosphatase 47 Total Protein 7.4 Albumin 3.6 Globulin 3.8 Albumin/Globulin Ratio 0.9 Lipase 94 Urine Color Urine Clarity Urine pH Ur Specific [employer] Urine Protein Urine Glucose (UA) Urine Ketones Urine Occult Blood Urine Nitrite Urine Bilirubin Urine Urobilinogen Ur Leukocyte Esterase Urine RBC Urine WBC Ur Squamous Epith Cells Urine Bacteria Urine Mucus Blood Type A POSITIVE 02/23/22 22:50 WBC RBC Hgb Hct MCV MCH MCHC RDW Std Deviation RDW Coeff of Radha Plt Count MPV Immature Gran % (Auto) Neut % (Auto) Lymph % (Auto) [place] % (Auto) Eos % (Auto) Baso % (Auto) Absolute Neuts (auto) Absolute Lymphs (auto) Nucleated RBC % Sodium Potassium Chloride Carbon Dioxide Anion Gap BUN Creatinine Estim Creat Clear Calc Est GFR (MDRD) Af Amer Est GFR (MDRD) Non-Af BUN/Creatinine Ratio Glucose Calcium Total Bilirubin AST ALT Alkaline Phosphatase Total Protein Albumin Globulin Albumin/Globulin Ratio Lipase Urine Color Straw Urine Clarity Clear Urine pH 7.0 Ur Specific [employer] 1.010 Urine Protein Negative Urine Glucose (UA) Normal Urine Ketones Negative Urine Occult Blood Negative Urine Nitrite Negative Urine Bilirubin Negative Urine Urobilinogen Normal Ur Leukocyte Esterase 25 H Urine RBC 0 SEEN Urine WBC 0 SEEN Ur Squamous Epith Cells 0-5 SEEN Urine Bacteria 0 SEEN Urine Mucus 0 SEEN Blood Type Radiography Diagnostic Testing: Clinical Impression(s) from Imaging Studies Obstetrics Ultrasound 02/23/22 22:39 IMPRESSION: No IUP seen. Ectopic can''t be excluded. Follow-up is recommended. Electronically Signed: Gaurav Patten MD at 0:46 EDT , Discharge Plan Triage Chief Complaint: Abd Pain ED Provider: Ab Flood Dx/Rx/DC Orders Clinical Impression: , Abdominal pain, UTI (urinary tract infection), Leukocytosis Instructions: Ectopic Prescriptions: New cephalexin 500 mg capsule 500 mg PO TID Qty: 21 0RF Primary Care Provider: Bri Brasher Referrals: Bri Brasher, PA [Primary Care Provider] - Activity Restrictions/Additional Instructions: Please return if you develop sudden increased abdominal pain, if you develop nausea or vomiting or if he cannot tolerate medicine or food by mouth. Please return if develop heavy vaginal bleeding, passage of tissue or severe abdominal cramping. Disposition Disposition: Home, Self Care
--- NOTE | 2022-02-23 22:39 | US_ITS ---
STUDY: FIRST TRIMESTER OBSTETRICAL ULTRASOUND REASON FOR EXAM: Female, 26 years old lower abdominal pain, early TECHNIQUE: Transabdominal and Transvaginal TECHNICAL QUALITY: Adequate. PRIOR ULTRASOUND: None. FINDINGS: There is visualization of an intrauterine cystic structure measures 7.9 mm. There is no demonstrated yolk sac. The placenta is non-visualized. There is no demonstrated embryo ( pole). The uterus measures 10 x 6.5 x 5.5 cm. There is no demonstrated uterine fibroid. The cervix is closed. The right ovary measures 4.6 x 2.4 x 2.5 cm. There is no right ovarian cyst. There is no visualized right adnexal mass or complex lesion. The left ovary measures 4 x 3.3 x 1.9 cm. There is no left ovarian cyst. There is no visualized left adnexal mass or complex lesion. There is no fluid in the cul de sac. US/Transvaginal w/Preg US IMPRESSION: No IUP seen. Ectopic can''t be excluded. Follow-up is recommended. Electronically Signed: Gaurav Patten MD at 0:46 EDT ,
[2022-02-23 23:07] LABS: Bacteria 0 SEEN /hpf (None Seen); Mucous, Urine 0 SEEN /hpf (<or=2+); Red Blood Cells-Urine 0 SEEN /hpf (0-5); White Blood Cells 0 SEEN /hpf (0-5)
[2022-02-23 23:10] LABS: Color, Urine Straw (Yellow); Glucose, Dipstick Normal (Normal); Ketone-Dipstick Negative (Negative); Leukocyte Esterase-Dipstick 25 /ul (Negative); Nitrite-Dipstick Negative (Negative); Occult Blood-Urine Negative /ul (Negative); Protein-Dipstick Negative (Negative); Urine Bilirubin Dipstick Negative (Negative); Urine Clarity Clear (Clear); Urine Urobilinogen Normal (Normal)
[2022-02-23 23:16] LABS: Squamous Epithelial Cells - UA 0-5 SEEN /hpf (5-10)
[2022-02-23 23:44] LABS: ALB/GLOB Ratio 0.9 RATIO (0.9-2.4); AST(SGOT) 28 U/L (15-37); Alanine Aminotransfer ALT/SGPT 39 U/L (13-56); Albumin, Serum 3.6 g/dL (3.2-5.0); Alkaline Phosphatase 47 U/L (45-117); Anion Gap 6 (5-15); BUN 9 mg/dL (7-18); BUN/Creat Ratio 14.2 RATIO (10-20); Calcium,Total 9.1 mg/dL (8.5-10.1); Chloride 110 mmol/L (98-107); Creatinine, Serum 0.63 mg/dL (0.55-1.02); EST Glomerular Filtration Rate 120 mL/min (>60); Est Glom Filt Rate - Afr Amer 145 mL/min (>60); Estimated Creatinine Clearance 107.03 ml/min; Globulin 3.8 g/dL (2.2-4.2); Glucose 95 mg/dL (74-106); Lipase 94 U/L (73-393); Potassium 3.5 mmol/L (3.5-5.1); Protein, Total 7.4 g/dL (6.4-8.2); Sodium Level 140 mmol/L (136-145)
[2022-02-23 23:53] LABS: Absolute Lymphocyte Count 4.42 X10^3/uL (0.83-4.51); Absolute Neutrophil Count 8.6 X10^3/uL (2.0-7.7); Basophil# 0.05 X10^3/uL; Basophil% 0.4 % (0-1); Eosinophil# 0.19 X10^3/uL; Eosinophils% 1.3 % (0-5); Hematocrit 41.6 % (37-47); Hemoglobin 14.3 g/dL (12.0-15.0); Lymphocyte # 4.42 X10^3/ul (0.83-4.51); Lymphocyte % 31.3 % (19-41); Mean Corp Hgb Conc 34.4 g/dL (32-36); Mean Corpuscular Hgb 30.8 pg (27.0-32.0); Mean Corpuscular Volume 89.7 fL (81-99); Mean Platelet Vol. 9.5 fl (6.2-12.0); Monocyte# 0.69 X10^3/uL; Monocyte% 4.9 % (0-10); NRBC Flagged by Analyzer 0 % (0-5); Neutrophil # 8.63 X10^3/uL (2.7-7.7); Platelet Count 397 K/mm3 (150-450); RBC Distribution Width CV 13.6 % (11.6-14.6); RBC Distribution Width SD 44.3 fl (35.1-43.9); Red Blood Count 4.64 M/mm3 (4.2-5.4); White Blood Count 14.1 K/mm3 (4.4-11.0)
[2022-02-24 02:08] LABS: hCG Titer Quant., Serum 4016 mIU/mL (1-3)
== END 2022-02-24 01:29 | disposition home or self-care (01) ==
PROVIDERS: Emergency Provider Emergency Medicine; PCP Physician Assistant; Visit Provider Emergency Medicine
DX: O23.41 Unspecified infection of urinary tract in pregnancy, first trimester (principal); O26.891 Other specified pregnancy related conditions, first trimester; F17.210 Nicotine dependence, cigarettes, uncomplicated; O99.331 Smoking (tobacco) complicating pregnancy, first trimester; R10.9 Unspecified abdominal pain; D72.829 Elevated white blood cell count, unspecified; O99.111 Other diseases of the blood and blood-forming organs and certain disorders involving the immune mechanism complicating pregnancy, first trimester; Z3A.08 8 weeks gestation of pregnancy
CPT/HCPCS: 36415; 76817; 80053; 81001; 83690; 84702; 85025; 86900; 86901; 93976; 99283; A4216

== ENCOUNTER → 2022-02-27 | Outpatient (CLI) | payer MEDICAID, SELFPAY ==
[2022-02-27 11:04] LABS: hCG Titer Quant., Serum 11286 mIU/mL (1-3)
== END | disposition home or self-care (01) ==
LOC: WOBLAB 09:09
PROVIDERS: PCP Physician Assistant; Visit Provider Student in an Organized Health Care Education/Training Program
DX: N91.2 Amenorrhea, unspecified (principal)
CPT/HCPCS: 36415; 84702

== ENCOUNTER → 2022-03-06 | Outpatient (CLI) | payer MEDICAID, SELFPAY ==
[2022-03-06 10:43] LABS: Absolute Lymphocyte Count 2.97 X10^3/uL (0.83-4.51); Absolute Neutrophil Count 8.7 X10^3/uL (2.0-7.7); Basophil# 0.05 X10^3/uL; Basophil% 0.4 % (0-1); Eosinophil# 0.13 X10^3/uL; Hematocrit 39.1 % (37-47); Hemoglobin 13.4 g/dL (12.0-15.0); Lymphocyte # 2.97 X10^3/ul (0.83-4.51); Lymphocyte % 23.7 % (19-41); Mean Corp Hgb Conc 34.3 g/dL (32-36); Mean Corpuscular Hgb 30.4 pg (27.0-32.0); Mean Corpuscular Volume 88.7 fL (81-99); Mean Platelet Vol. 9.6 fl (6.2-12.0); Monocyte# 0.54 X10^3/uL; Monocyte% 4.3 % (0-10); NRBC Flagged by Analyzer 0 % (0-5); Neutrophil # 8.71 X10^3/uL (2.7-7.7); Neutrophil % 69.7 % (47-70); Platelet Count 383 K/mm3 (150-450); RBC Distribution Width CV 13.3 % (11.6-14.6); RBC Distribution Width SD 43.7 fl (35.1-43.9); Red Blood Count 4.41 M/mm3 (4.2-5.4); White Blood Count 12.5 K/mm3 (4.4-11.0)
[2022-03-06 11:33] LABS: HIV - WCH Non-Reactive (Nonreactive); Hepatitis B Surface Antigen Non-Reactive (Nonreactive); Hepatitis C Antibody Non-Reactive (Nonreactive); Rubella IgG Reactive (Nonreactive); Syphilis Antibodies Non-reactive
[2022-03-07 17:12] LABS: V-Zoster IgG (Immunity) 202 index (Immune >165)
[2022-03-08 06:07] LABS: Chlamydia By Nucleic Acid AMP Negative (Negative)
[2022-03-08 12:35] LABS: Gonococcus By Nucleic Acid AMP Negative (Negative)
[2022-03-25 18:59] LABS: HPV Reflexed? NOT INDICATED
== END | disposition home or self-care (01) ==
LOC: WOBLAB 09:51
PROVIDERS: PCP Physician Assistant; Visit Provider Obstetrics & Gynecology
DX: Z12.4 Encounter for screening for malignant neoplasm of cervix (principal); Z11.3 Encounter for screening for infections with a predominantly sexual mode of transmission; Z34.81 Encounter for supervision of other normal pregnancy, first trimester
CPT/HCPCS: 36415; 85025; 86703; 86762; 86780; 86787; 86803; 87086; 87088; 87340; 87491; 87591; 88175; G0145

== ENCOUNTER → 2022-05-28 | Outpatient (CLI) | payer MEDICAID, SELFPAY ==
[2022-05-28 14:32] LABS: Absolute Lymphocyte Count 2.59 X10^3/uL (0.83-4.51); Absolute Neutrophil Count 11.2 X10^3/uL (2.0-7.7); Basophil# 0.06 X10^3/uL; Basophil% 0.4 % (0-1); Eosinophil# 0.16 X10^3/uL; Eosinophils% 1.1 % (0-5); Hematocrit 35.5 % (37-47); Lymphocyte # 2.59 X10^3/ul (0.83-4.51); Lymphocyte % 17.5 % (19-41); Mean Corp Hgb Conc 33.8 g/dL (32-36); Mean Corpuscular Hgb 30.1 pg (27.0-32.0); Mean Platelet Vol. 10.5 fl (6.2-12.0); Monocyte# 0.48 X10^3/uL; Monocyte% 3.2 % (0-10); NRBC Flagged by Analyzer 0 % (0-5); Neutrophil # 11.17 X10^3/uL (2.7-7.7); Neutrophil % 75.2 % (47-70); Platelet Count 325 K/mm3 (150-450); RBC Distribution Width CV 13.3 % (11.6-14.6); RBC Distribution Width SD 43.3 fl (35.1-43.9); Red Blood Count 3.99 M/mm3 (4.2-5.4); White Blood Count 14.8 K/mm3 (4.4-11.0)
[2022-05-28 14:41] LABS: Protein, Urine (Random) 16.1 mg/dL (<11.9); Protein:Creat Ratio 128 mg/g CRE (0-200)
[2022-05-28 15:08] LABS: Albumin, Serum 2.9 g/dL (3.2-5.0); BUN 4 mg/dL (7-18); BUN/Creat Ratio 8.5 RATIO (10-20); Creatinine, Serum 0.47 mg/dL (0.55-1.02); EST Glomerular Filtration Rate 169 mL/min (>60); Est Glom Filt Rate - Afr Amer 205 mL/min (>60); Globulin 3.7 g/dL (2.2-4.2); Glucose 135 mg/dL (74-106); Protein, Total 6.6 g/dL (6.4-8.2)
[2022-05-28 15:09] LABS: ALB/GLOB Ratio 0.8 RATIO (0.9-2.4); AST(SGOT) 11 U/L (15-37); Alanine Aminotransfer ALT/SGPT 19 U/L (13-56); Alkaline Phosphatase 48 U/L (45-117); Anion Gap 10 (5-15); Calcium,Total 8.7 mg/dL (8.5-10.1); Chloride 107 mmol/L (98-107); LDH 136 U/L (84-246); Potassium 3.3 mmol/L (3.5-5.1); Sodium Level 139 mmol/L (136-145)
== END | disposition home or self-care (01) ==
LOC: WOBLAB 13:46
PROVIDERS: PCP Physician Assistant; Visit Provider Obstetrics & Gynecology
DX: Z34.82 Encounter for supervision of other normal pregnancy, second trimester (principal)
CPT/HCPCS: 36415; 80053; 82570; 83615; 84156; 85025; 87086; 87088

== ENCOUNTER → 2022-06-18 | Outpatient (CLI) | payer MEDICAID, SELFPAY | END | disposition home or self-care (01) | LOC: LABSPEC 10:23 | PROVIDERS: PCP Physician Assistant; Visit Provider Student in an Organized Health Care Education/Training Program | DX: N39.0 Urinary tract infection, site not specified (principal) | CPT/HCPCS: 87086; 87088 ==

== ENCOUNTER → 2022-07-31 | Outpatient (CLI) | payer MEDICAID, SELFPAY ==
[2022-07-31 10:19] LABS: Absolute Neutrophil Count 12.7 X10^3/uL (2.0-7.7); Basophil# 0.09 X10^3/uL; Basophil% 0.6 % (0-1); Eosinophil# 0.13 X10^3/uL; Eosinophils% 0.8 % (0-5); Hematocrit 37.9 % (37-47); Hemoglobin 12.5 g/dL (12.0-15.0); Lymphocyte % 14.7 % (19-41); Mean Corpuscular Hgb 30.6 pg (27.0-32.0); Mean Corpuscular Volume 92.7 fL (81-99); Mean Platelet Vol. 10.3 fl (6.2-12.0); Monocyte# 0.53 X10^3/uL; Monocyte% 3.2 % (0-10); NRBC Flagged by Analyzer 0 % (0-5); Neutrophil # 12.72 X10^3/uL (2.7-7.7); Neutrophil % 77.9 % (47-70); Platelet Count 273 K/mm3 (150-450); RBC Distribution Width CV 13.6 % (11.6-14.6); RBC Distribution Width SD 46.3 fl (35.1-43.9); Red Blood Count 4.09 M/mm3 (4.2-5.4); White Blood Count 16.3 K/mm3 (4.4-11.0)
[2022-07-31 11:43] LABS: Glucose Challenge Gest 1H 50g 158 mg/dL (70-140)
[2022-07-31 12:12] LABS: Syphilis Antibodies Non-reactive
== END | disposition home or self-care (01) ==
LOC: LABSPEC 09:58
PROVIDERS: PCP Physician Assistant; Visit Provider Obstetrics & Gynecology
DX: Z34.82 Encounter for supervision of other normal pregnancy, second trimester (principal)
CPT/HCPCS: 36415; 82950; 85025; 86780

== ENCOUNTER → 2022-08-12 | Outpatient (CLI) | payer MEDICAID, SELFPAY ==
[2022-08-12 10:00] LABS: Glucose GTT-Gestation. Fasting 88 mg/dL (<105)
[2022-08-12 10:48] LABS: Glucose GTT-Gestational 1 Hr 229 mg/dL (<190)
[2022-08-12 11:54] LABS: Glucose GTT-Gestational 2 Hr 165 mg/dL (<165)
[2022-08-12 13:46] LABS: Glucose GTT-Gestational 3 Hr 90 L (<145)
== END | disposition home or self-care (01) ==
LOC: WOBLAB 08:44
PROVIDERS: PCP Physician Assistant; Visit Provider Obstetrics & Gynecology
DX: O24.912 Unspecified diabetes mellitus in pregnancy, second trimester (principal)
CPT/HCPCS: 36415; 82951; 82952

== ENCOUNTER 2022-09-08 10:10 | Outpatient (CLI) | payer MEDICAID, SELFPAY ==
[2022-09-08 10:22] VITALS: BP 119/66; PULSE 93; TEMP 36.7; O2SAT 98
[2022-09-08 10:23] VITALS: PULSE 92; O2SAT 98
[2022-09-08 10:27] VITALS: BMI 41.0
--- NOTE | 2022-09-08 16:22 | OB.TRI.NOTE ---
HPI - General HPI Narrative EDNA SAHNI, is a 27 y/o @ 32 weeks 4 days who presents to L&D for a scheduled NST due to finding of nuchal cord on ultrasound in office yesterday. A bpp was 12/17 however due to maternal anxiety, the decision was made to bring her back in for an NST today. She denies dec fm, vaginal bleeding, or loss of fluid. PFSH PFSH Medical History 36 weeks gestation of Decreased movement Home Medications cephalexin 500 mg capsule 500 mg PO TID #21 caps 02/24/22 [Rx Last Taken Unknown] Allergy/AdvReac Type Severity Reaction Status Date / Time Penicillins [PCN] Allergy Rash Verified 02/23/22 22:00 Social History Smoking Status: Current every day smoker tobacco type: cigarettes History Elective abortions Hx Para 1 Spontaneous abortions Hx # Term Pregnancies Ectopic pregnancies Hx # Pregnancies Multiple births # of living children ROS Constitutional Constitutional: Reports systems reviewed and no addt'l complaints, except as documented Gastrointestinal Gastrointestinal: Denies bloating, constipation, cramping, diarrhea, nausea or vomiting Genitourinary Genitourinary: Reports other Details: Denies vaginal odor, vaginal bleeding, or vaginal discharge ; Denies difficulty urinating or flank pain NST FHR Rate Baby A Baseline: 130 Variability:: Moderate Accelerations:: 15 x 15 Decelerations:: None NST Reactive:: Yes FHR Category:: Category I Assessment & Plan (1) Nuchal cord, single gestation: (2) 32 weeks gestation of : PLAN: Plan NST reactive. keep follow up appts with Dr. Simeon next week. Charges/Coding Multi Select Codes Urinary/Genital Urinary/Genital CPT Codes: 12203-74 non-stress test Interp
== END 2022-09-08 11:10 | disposition home or self-care (01) ==
LOC: WPOUT 10:14 → WP 10:14
PROVIDERS: PCP Physician Assistant; Referring Provider Obstetrics & Gynecology; Visit Provider Obstetrics & Gynecology
DX: O69.81X0 Labor and delivery complicated by cord around neck, without compression, not applicable or unspecified (principal); Z3A.36 36 weeks gestation of pregnancy
CPT/HCPCS: 59025; 59050; 99221; G0378

== ENCOUNTER → 2022-09-24 | Outpatient (CLI) | payer MEDICAID, SELFPAY ==
[2022-09-24 16:01] LABS: Absolute Lymphocyte Count 2.75 X10^3/uL (0.83-4.51); Absolute Neutrophil Count 9.8 X10^3/uL (2.0-7.7); Basophil# 0.06 X10^3/uL; Basophil% 0.4 % (0-1); Eosinophil# 0.13 X10^3/uL; Eosinophils% 0.9 % (0-5); Hematocrit 37.3 % (37-47); Hemoglobin 12.6 g/dL (12.0-15.0); Lymphocyte # 2.75 X10^3/ul (0.83-4.51); Mean Corp Hgb Conc 33.8 g/dL (32-36); Mean Corpuscular Hgb 30.1 pg (27.0-32.0); Mean Corpuscular Volume 89.2 fL (81-99); Mean Platelet Vol. 10.5 fl (6.2-12.0); Monocyte# 0.72 X10^3/uL; Monocyte% 5.2 % (0-10); NRBC Flagged by Analyzer 0 % (0-5); Neutrophil # 9.77 X10^3/uL (2.7-7.7); Platelet Count 303 K/mm3 (150-450); RBC Distribution Width CV 13.2 % (11.6-14.6); RBC Distribution Width SD 43.6 fl (35.1-43.9); Red Blood Count 4.18 M/mm3 (4.2-5.4); White Blood Count 13.8 K/mm3 (4.4-11.0)
[2022-09-24 16:17] LABS: ALB/GLOB Ratio 0.7 RATIO (0.9-2.4); AST(SGOT) 12 U/L (15-37); Alanine Aminotransfer ALT/SGPT 11 U/L (13-56); Albumin, Serum 2.7 g/dL (3.2-5.0); Alkaline Phosphatase 128 U/L (45-117); Anion Gap 9 (5-15); BUN 9 mg/dL (7-18); BUN/Creat Ratio 18.9 RATIO (10-20); Calcium,Total 8.8 mg/dL (8.5-10.1); Chloride 108 mmol/L (98-107); Creatinine, Serum 0.48 mg/dL (0.55-1.02); EST Glomerular Filtration Rate 166 mL/min (>60); Est Glom Filt Rate - Afr Amer 201 mL/min (>60); Glucose 93 mg/dL (74-106); LDH 132 U/L (84-246); Potassium 3.8 mmol/L (3.5-5.1); Protein, Total 6.7 g/dL (6.4-8.2); Sodium Level 136 mmol/L (136-145)
[2022-09-24 16:34] LABS: Protein, Urine (Random) 19.4 mg/dL (<11.9); Protein:Creat Ratio 226 mg/g CRE (0-200)
== END | disposition home or self-care (01) ==
LOC: WOBLAB 15:26
PROVIDERS: PCP Physician Assistant; Visit Provider Obstetrics & Gynecology
DX: O13.3 Gestational [pregnancy-induced] hypertension without significant proteinuria, third trimester (principal); Z3A.00 Weeks of gestation of pregnancy not specified
CPT/HCPCS: 36415; 80053; 82570; 83615; 84156; 85025; 87086; 87088

== ENCOUNTER 2022-10-01 12:00 | Outpatient (CLI) | payer MEDICAID, SELFPAY ==
[2022-10-01 12:26] VITALS: BP 131/80; PULSE 93; TEMP 36.8; O2SAT 99
[2022-10-01 12:51] VITALS: BMI 40.9
[2022-10-01 17:25] VITALS: BP 134/72; PULSE 90; TEMP 36.2; O2SAT 98
--- NOTE | 2022-10-11 08:37 | PCM.PN.OB ---
Subjective Subjective Patient arrived to triage for contractions. Rule out labor. Cervix closed. status reassuring. heart rate 130/moderate variability/+accel/no decel, not jessika. Discharged home with labor precautions. Objective Data Objective Data Vital Signs: Vital Signs Temp Pulse BP Pulse Ox 97.1 F L 90 134/72 H 98 10/01/22 17:25 10/01/22 17:25 10/01/22 17:25 10/01/22 17:25 Weight: 101.605 kg Body Mass Index (BMI) 40.9 NST FHR Rate Baby A Baseline: 130 Variability:: Moderate Accelerations:: 15 x 15 Decelerations:: None NST Reactive:: Yes Uterine Activity:: none
== END 2022-10-01 13:25 | disposition home or self-care (01) ==
LOC: WPOUT 12:01 → WP 12:04
PROVIDERS: PCP Physician Assistant; Referring Provider Student in an Organized Health Care Education/Training Program; Visit Provider Student in an Organized Health Care Education/Training Program
DX: O47.9 False labor, unspecified (principal)
CPT/HCPCS: 59025; 59050; 99221; G0378

== ENCOUNTER → 2022-10-02 | Outpatient (CLI) | payer MEDICAID, SELFPAY | END | disposition home or self-care (01) | LOC: LABSPEC 15:20 | PROVIDERS: PCP Physician Assistant; Visit Provider Obstetrics & Gynecology | DX: Z36.85 Encounter for antenatal screening for Streptococcus B (principal) | CPT/HCPCS: 87081 ==

== ENCOUNTER 2022-10-06 22:31 | Inpatient (IN) | payer MEDICAID, SELFPAY ==
[2022-10-06 22:02] VITALS: BP 139/89; PULSE 103; TEMP 37.6; O2SAT 99
[2022-10-06 22:05] VITALS: BMI 40.5
[2022-10-06 22:30] LABS: ROM Internal Control Test YES-OK TO RESULT pt. (Internal QC)
[2022-10-06 22:32] LABS: ROM Patient Test POSITIVE (Negative); Record Kit Lot#, ROM+ K1374
[2022-10-06 22:42] VITALS: BP 132/85; PULSE 101; RESP 14; TEMP 37.2; O2SAT 98
[2022-10-06] MEDS: Lactated Ringers 1,000 ML 999 ML IV (22:50)
[2022-10-06 22:56] VITALS: BP 132/85; PULSE 102; PULSE 99; O2SAT 98
[2022-10-06] MEDS: Betamethasone/Betamethasone 30 MG/5 ML Vial 12 MG IM (23:02)
[2022-10-06] MEDS: Acetaminophen 500 MG Tablet PO (23:03)
[2022-10-06] MEDS: Sodium Citrate/Citric Acid 30 ML UDC PO (23:04)
[2022-10-06 23:05] LABS: Absolute Neutrophil Count 12.2 X10^3/uL (2.0-7.7); Basophil# 0.04 X10^3/uL; Basophil% 0.3 % (0-1); Eosinophil# 0.08 X10^3/uL; Eosinophils% 0.5 % (0-5); Hematocrit 39.2 % (37-47); Hemoglobin 13.2 g/dL (12.0-15.0); Mean Corp Hgb Conc 33.7 g/dL (32-36); Mean Corpuscular Hgb 29.9 pg (27.0-32.0); Mean Corpuscular Volume 88.7 fL (81-99); Mean Platelet Vol. 10.7 fl (6.2-12.0); Monocyte# 0.71 X10^3/uL; Monocyte% 4.5 % (0-10); NRBC Flagged by Analyzer 0 % (0-5); Neutrophil # 12.16 X10^3/uL (2.7-7.7); Neutrophil % 76.6 % (47-70); Platelet Count 299 K/mm3 (150-450); RBC Distribution Width CV 13.8 % (11.6-14.6); RBC Distribution Width SD 44.1 fl (35.1-43.9); Red Blood Count 4.42 M/mm3 (4.2-5.4); White Blood Count 15.9 K/mm3 (4.4-11.0)
--- NOTE | 2022-10-06 23:06 | PCM.HP.BLA ---
History and Physical Date of Admission: 10/06/22 Chief complaint: Leakage of fluid History present illness: 27-year-old G4, P2 at 36 weeks and 4 days with ANNIA 10/30/2022 arrives with leakage of clear fluid. Denies headache, vision change, chest pain, shortness of breath, nausea vomit, right upper quadrant pain. Patient states good movement. is complicated by P PROM, BMI 40, smoking, GDM A1 Obstetric history: G1: 37 weeks section male 6 pounds 7 ounces G2: 37 weeks section male 6 pounds 9 ounces G3: Ectopic treated with methotrexate G4: Current Past medical history: GDM A1 Medications: vitamin Past surgical history: section x2, tonsillectomy Social history: 1 pack/day smoker, denies alcohol or drug use Family history: Denies history DVT or PE Review of systems: Besides above pertinent positives a full review of systems was performed and found to be negative Physical exam: Vitals: Blood pressure 132/85 pulse 99 SPO2 98% on room air General: Normal-appearing no acute distress HEENT: Normocephalic atraumatic no cervical and adenopathy Cardiac/respiratory: No use of accessory muscles, nonlabored breathing Abdomen: Soft, nontender, gravid Extremities: No peripheral edema normal peripheral pulses Psych: Normal affect normal demeanor nonpressured speech Labs: White blood cell count 15.9 hemoglobin 13.2 hematocrit 39.2% platelets 299. ROM positive Assessment and plan: 27-year-old G4, P2 at 36 weeks and 4 days with P PROM. 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 Arrived for evaluation. Educated patient on P PROM and delivery at 36 weeks including risk for baby, educated patient on Celestone, patient states understanding. Educated patient on repeat section risk benefits alternatives include but are not limited to visceral or vascular injury, prolonged hospitalization, blood loss need for transfusion, reoperation. Patient state understanding wish to proceed. All questions were answered and consent was signed. GDM A1, will continue to monitor blood sugars, overall benefits of Celestone outweigh maternal blood sugar rising currently with maternal blood sugar in the 70s, reassuring. For section now
[2022-10-06] MEDS: Cefazolin 2 GM in 0.9% Normal Saline 100 ML IV (23:29)
[2022-10-06 23:51] LABS: Syphilis Antibodies Non-reactive
[2022-10-07] VITALS (25 sets, daily range): BP systolic 92–132; BP diastolic 34–85; PULSE 58–98; RESP 14–18; TEMP 36.3–36.8; O2SAT 95–98
--- NOTE | 2022-10-07 00:29 | EX.PCM.OBRPT ---
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 Normal uterus, tubes, and ovaries. Consent: Patient with premature rupture of membranes and with a history of section elects for repeat section Via Pfannenstiel incision. Patient understands risk of the procedure include but are not limited to visceral or vascular injury, prolonged hospitalization, blood loss need for transfusion, reoperation. Patient state understanding wish to proceed. All questions were answered and consent was signed. Procedure: Patient was brought back to the OR where spinal anesthesia was found to be adequate. 2 g of Ancef and 500 mg of azithromycin were given for infection prophylaxis. Patient was prepared and draped in a supine position with leftward tilt. A Pfannenstiel incision was made at the skin with a scalpel. The incision was carried down to the fascia with scalpel. The fascia was excised and extended laterally. Inferior aspect of the fascia was grasped with a clamp and the underlying rectus and pyramidalis muscle was dissected off sharply. In similar fashion the superior aspect of the fascia was grasped with a clamp and the underlying rectus muscle was dissected off sharply. Rectus muscle was dissected the midline down to the level of the pubic symphysis. Preperitoneal fatty tissue was noted and peritoneum was entered sharply. Peritoneum was extended superiorly and inferiorly with good visualization of bladder. Bladder blade was inserted and vesicouterine peritoneum was identified. Low transverse hysterotomy was made. Hand was placed into the incision and gentle fundal pressure was applied once the head was brought into the incision and the bladder blade was removed. Head and shoulders were delivered with ease. Cord was clamped and cut. Baby was handed off to nursing. Placenta was delivered via cord traction and fundal massage. IV oxytocin was initiated in order to facilitate uterine contractions. Uterus was exteriorized and wiped out with dry laparotomy sponge in order to remove remaining placental membranes. Uterus was closed in continuous running fashion. Hemostasis was achieved with a Bovie and [id number] sutures. Uterus was placed back into the abdominal cavity and the incision was reinspected, good hemostasis was noted. Bharath was placed over the incision. Good hemostasis was noted. Fascia was closed in continuous running fashion with PDS suture. Subcutaneous irrigation was performed and good hemostasis was noted. Skin was closed in a subcuticular fashion. All counts were correct x2. Patient tolerated procedure well and was brought to recovery in stable condition.
[2022-10-07] MEDS: Oxytocin 15 Units/NS 250ml 15 UNITS/250 ML IV.SOLN 83 UNITS IV (01:10)
[2022-10-07] MEDS: Ketorolac 30 MG/ML Syringe IV ×4 (01:38→18:57)
[2022-10-07 01:49] LABS: Bedside Glucose 75 mg/dL (74-106)
[2022-10-07 02:02] LABS: Bedside Glucose 121 mg/dL (74-106)
--- NOTE | 2022-10-07 04:10 | PN.OBGYN_ITS ---
Subjective Subjective Overall no complaints Objective Data Objective Data Vital Signs: Vital Signs Temp Pulse Resp BP Pulse Ox O2 Del Method 97.4 F L 75 16 114/41 L 97 Room Air 10/07/22 02:38 10/07/22 02:53 10/07/22 02:53 10/07/22 02:53 10/07/22 02:53 10/07/22 02:53 Oxygen Delivery Method Room Air Weight: 221 lb 9.033 oz Body Mass Index (BMI) 40.5 Intake & Output: Intake and Output for Last 24 Hours 10/05/22 10/06/22 10/07/22 23:59 23:59 23:59 Intake Total 1000 / 1000 365 / 365 Output Total 950 / 950 Balance 1000 / 1000 -585 / -585 Lab / Micro Data Result Diagrams: 10/06/22 22:50 Labs: Laboratory Results - last 24 hr 10/06/22 22:10: Vag Amniotic Fld Detect POSITIVE H 10/06/22 22:50: WBC 15.9 H, RBC 4.42, Hgb 13.2, Hct 39.2, MCV 88.7, MCH 29.9, MCHC 33.7, RDW Std Deviation 44.1 H, RDW Coeff of Radha 13.8, Plt Count 299, MPV 10.7, Immature Gran % (Auto) 1.100 H, Neut % (Auto) 76.6 H, Lymph % (Auto) 17.0 L, [place] % (Auto) 4.5, Eos % (Auto) 0.5, Baso % (Auto) 0.3, Absolute Neuts (auto) 12.2 H, Absolute Lymphs (auto) 2.70, Nucleated RBC % 0 10/06/22 22:50: Blood Type A POSITIVE, Antibody Screen NEGATIVE 10/06/22 22:50: Syphilis Total Ab Non-reactive 10/06/22 23:00: POC Glucose 75 10/07/22 01:36: POC Glucose 121 H Physical Exam Const alert, oriented x3, no apparent distress, average body habitus, healthy appearing and well nourished HEENT normocephalic and moist oral mucous membranes Eyes PERRL Neck full ROM Resp normal respiratory effort, no retractions and no use of accessory muscles Extremity normal to inspection and full ROM Neuro moves all extremities and no focal motor deficits Psych mental status grossly normal, affect normal, speech normal and activity/motor behavior normal Assessment & Plan (1) delivery delivered: PLAN: Postop day 1 status post repeat section at 36 weeks for P PROM. Breast-feeding. Overall pain well controlled. Educated patient on incision care. GDM A1 we will continue to follow blood sugars. Continue antibiotics for 24 hours with BMI. Lovenox 40 mg twice daily for BMI.
[2022-10-07] MEDS: Lactated Ringers 1,000 ML 100 ML IV (05:48)
[2022-10-07] MEDS: Acetaminophen 500 MG Tablet 1000 MG PO ×3 (05:48→18:37)
[2022-10-07] MEDS: Cefazolin 1 GM/50 ML BAG IV ×2 (08:04→15:25)
[2022-10-07] MEDS: Senna/Docusate Sodium 1 Tablet PO (11:00)
[2022-10-07] MEDS: Enoxaparin 40 MG/0.4 ML Syringe SC (13:40)
[2022-10-07] MEDS: 0.9% Saline Lock 10 ML Syringe IV ×2 (16:05→18:58)
[2022-10-08] MEDS: Acetaminophen 500 MG Tablet 1000 MG PO ×3 (00:33→12:12)
[2022-10-08] MEDS: Enoxaparin 40 MG/0.4 ML Syringe SC ×2 (01:46→13:55)
[2022-10-08] MEDS: Ibuprofen 600 MG Tablet PO ×3 (01:46→15:48)
[2022-10-08 01:50] VITALS: BP 102/53; PULSE 64; RESP 16; TEMP 36.6; O2SAT 98
--- NOTE | 2022-10-08 06:52 | NURSING ---
pts fasting blood sugar 101. pt reports that she had a belgian around 0200.
[2022-10-08 06:56] LABS: Hematocrit 33.1 % (37-47); Mean Corp Hgb Conc 33.2 g/dL (32-36); Mean Corpuscular Hgb 29.9 pg (27.0-32.0); Mean Corpuscular Volume 89.9 fL (81-99); Mean Platelet Vol. 10.7 fl (6.2-12.0); Platelet Count 295 K/mm3 (150-450); RBC Distribution Width CV 13.9 % (11.6-14.6); RBC Distribution Width SD 44.7 fl (35.1-43.9); Red Blood Count 3.68 M/mm3 (4.2-5.4); White Blood Count 19.8 K/mm3 (4.4-11.0)
[2022-10-08 07:02] LABS: Bedside Glucose 101 mg/dL (74-106)
[2022-10-08 07:50] VITALS: BP 123/56; PULSE 68; RESP 15; TEMP 36.4
--- NOTE | 2022-10-08 08:22 | PCM.PN.OB ---
Subjective Subjective Pain controlled with medication. Lochia minimal. Breast-feeding. Objective Data Objective Data Vital Signs: Vital Signs Temp Pulse Resp BP Pulse Ox O2 Del Method 97.9 F 64 16 102/53 L 98 Room Air 10/08/22 01:50 10/08/22 01:50 10/08/22 01:50 10/08/22 01:50 10/08/22 01:50 10/08/22 01:50 Oxygen Delivery Method Room Air Weight: 100.5 kg Body Mass Index (BMI) 40.5 Intake & Output: Intake and Output for Last 24 Hours 10/06/22 10/07/22 10/08/22 23:59 23:59 23:59 Intake Total 1000 / 1000 1710 / 1710 Output Total 1350 / 1350 Balance 1000 / 1000 360 / 360 Lab / Micro Data Attestation: I reviewed the patient's lab results. Result Diagrams: 10/08/22 06:32 Labs: Laboratory Results - last 24 hr 10/08/22 06:32: WBC 19.8 H, RBC 3.68 L, Hgb 11.0 L, Hct 33.1 L, MCV 89.9, MCH 29.9, MCHC 33.2, RDW Std Deviation 44.7 H, RDW Coeff of Radha 13.9, Plt Count 295, MPV 10.7 10/08/22 06:42: POC Glucose 101 Physical Exam Const alert, oriented x3 and no apparent distress HEENT normocephalic Head and Scalp: atraumatic Neck full ROM Resp normal respiratory effort Cardio regular rate GI normal to inspection, nondistended, normoactive bowel sounds GI Narrative: Uterus 2 cm below umbilicus, dressing clean and dry Back/Spine normal ROM Extremity normal to inspection Extremity Narrative: Minimal pedal edema Neuro no focal motor deficits and no sensory deficits noted Psych mental status grossly normal and affect normal Assessment & Plan (1) delivery delivered: PLAN: Post op day 2 s/p repeat section. Complicated by GDMA. fasting blood sugar within normal limits. Will need 2-hour glucose tolerance test 6 to 12 weeks . Discharge home today. Has appointment this week. Reviewed postoperative wound care and expectations.
--- NOTE | 2022-10-08 08:27 | DCINST_ITS ---
Discharge Instructions Diet Discharge Diet: No restrictions Activity Discharge Activity: Return to Normal Activity and May Shower May resume sexual activity in: 4-6 weeks Weight Bearing Status: Weight bearing as tolerated Lifting Restrictions: No greater than 25 pounds Dressing / Incision Call your doctor if your incision/area has: Continuous Slow Oozing, Increased Redness and Swelling at the incision site Call your doctor if you observe: Fever of 101 or Higher, Change in Color, Inability to urinate, Using more than 1 pad per hour, Shortness of breath, Dizziness, Swelling in the ankles, Chest pain and Calf discomfort Remove Dressing in: 1 week Cleanse incision/area with: Soap & Water and Keep Dressing Clean & Dry Follow Up Care Please Follow Up With: Donnie Simeon MD When: 2-week post op and 6-week visit Test Results: Test results from this visit will be discussed in further detail at your follow- up appointment, if applicable. Discharge Plan Admission Admit Date/Time: 10/06/22 22:31 Primary Reason for Your Visit: section Attending Provider: Donnie Simeon Primary Care Provider: Bri Brasher Instructions Additional Instructions / Restrictions: Regular diet. Okay to shower. No tub baths for 2 weeks. No intercourse for 6 to 8 weeks. No lifting over 25 pounds for 2 to 3 weeks. Call if fevers, chills, chest pain, shortness of breath. Follow-up 2 weeks postoperatively Discharge Orders/Prescriptions Prescriptions: New oxycodone 5 mg Tablet 5 mg PO Q6H PRN PRN (Reason: Pain Score 7-10) 4 Days Qty: 16 0RF Continued [id number] 1 mg Tablet PO Referrals / Follow Up: Bri Brasher PA [Primary Care Provider] - Disposition Disposition (needs filled in before D/C Order can be placed): Home, Self Care
--- NOTE | 2022-10-08 08:28 | DS.PCM_ITS ---
Providers Date of Admission: 10/06/22 Primary Care Physician: DANIELITO Matson Reason For Visit: Diagnosis Discharge Diagnosis (1) delivery delivered: Status: Acute Code(s): O82 - Encounter for delivery without indication Plan: Post op day 2 s/p repeat section. Complicated by GDMA. fasting blood sugar within normal limits. Will need 2-hour glucose tolerance test 6 to 12 weeks . Discharge home today. Has appointment this week. Reviewed postoperative wound care and expectations. Medications at Discharge Home Medications [id number]-[id number] 1 mg tablet tab PO 10/06/22 oxycodone 5 mg tablet 5 mg PO Q6H PRN PRN Pain Score 7-10 4 days #16 tabs 10/07/22 Hospital Course Operations section Summary of Care Provided Hospital Course: Admitted with rupture of membranes. Had repeat section. Discharged home postop day 2. Physical Exam Const alert, oriented x3 and no apparent distress HEENT normocephalic Head and Scalp: atraumatic Neck full ROM Resp normal respiratory effort Cardio regular rate GI normal to inspection, nondistended, normoactive bowel sounds GI Narrative: Uterus 2 cm below umbilicus, dressing clean and dry Back/Spine normal ROM Extremity normal to inspection Extremity Narrative: Minimal pedal edema Neuro no focal motor deficits and no sensory deficits noted Psych mental status grossly normal and affect normal Weight / BMI Weight Weight: 100.5 kg Body Mass Index (BMI) 40.5 ABG / Lab / Microbiology Data Result Diagrams: 10/08/22 06:32 Laboratory: Laboratory Results - last 24 hr 10/08/22 06:32: WBC 19.8 H, RBC 3.68 L, Hgb 11.0 L, Hct 33.1 L, MCV 89.9, MCH 29.9, MCHC 33.2, RDW Std Deviation 44.7 H, RDW Coeff of Radha 13.9, Plt Count 295, MPV 10.7 10/08/22 06:42: POC Glucose 101 D/C Instructions Discharge Diet: No restrictions May resume sexual activity in: 4-6 weeks Weight Bearing Status: Weight bearing as tolerated Call your doctor if your incision/area has: Continuous Slow Oozing, Increased Redness and Swelling at the incision site Call your doctor if you observe: Fever of 101 or Higher, Change in Color, Inability to urinate, Using more than 1 pad per hour, Shortness of breath, Dizziness, Swelling in the ankles, Chest pain and Calf discomfort Cleanse incision/area with: Soap & Water and Keep Dressing Clean & Dry Please Follow Up With: Donnie Simeon MD When: 2-week post op and 6-week visit Meaningful Use Info Meaningful Use Diagnoses (Choose all that apply): None applicable Discharge Plan Admission Admit Date/Time: 10/06/22 22:31 Primary Reason for Your Visit: section Attending Provider: Donnie Simeon Primary Care Provider: Bri Brasher Instructions Additional Instructions / Restrictions: Regular diet. Okay to shower. No tub baths for 2 weeks. No intercourse for 6 to 8 weeks. No lifting over 25 pounds for 2 to 3 weeks. Call if fevers, chill s, chest pain, shortness of breath. Follow-up 2 weeks postoperatively Discharge Orders/Prescriptions Prescriptions: New oxycodone 5 mg Tablet 5 mg PO Q6H PRN PRN (Reason: Pain Score 7-10) 4 Days Qty: 16 0RF Continued vbtyhwqm-[id number]-Ll-FA 1 mg Tablet PO Referrals / Follow Up: Bri Brasher PA [Primary Care Provider] - Disposition Disposition (needs filled in before D/C Order can be placed): Home, Self Care
[2022-10-08] MEDS: Senna/Docusate Sodium 1 Tablet PO (10:35)
[2022-10-08 13:52] VITALS: BP 125/63; PULSE 78; RESP 16; TEMP 36.9; O2SAT 99
--- NOTE | 2022-10-08 18:31 | CASEMGMT ---
Social Work Brief Assessment Labor and Delivery Unit Patient Address: [facility] [address], [address], [place] [address] Phone number: [phone] Date of Referral/Notification: 10/08/2022 Time of Referral: [id number] Referred By: Dr. Donnie Simeon Date of Intervention: 10/08/2022 Time of Intervention: Approximately [id number] Reason for Referral: History of depression Informant: Medical record and mother of baby (MOB) Beau Day History: CASSIE is a 27-year-old single female, involved with the father of baby (FOB) Van Calderon, who is 1 year younger than the MOB. MOB and FOB have been together for about 10 years. MOB denies any type of abuse or intimate partner violence in this relationship. MOB and FOB now have 3 children together. Nabeel (December 2016), Yousuf (06/30/2018), and baby in Braulio Calderon (10/06/2002). CASSIE is 4, para 2 now 3 after delivering Braulio. 1 ectopic in between Yousuf and Braulio. care reported as adequate. Delivery at 36.4 weeks gestation via BENNIE . Braulio weighed 7 pounds 2 ounces at . Apgars 9 and 9 at 1 and 5 minutes of life respectively. CASSIE reports to have a high school diploma and denies any issues with reading, writing, or learning comprehension. CASSIE works part-time action [employer] and FELA stays at home caring for the children. MOB reports both Nabeel and Yousuf have been diagnosed on the autism spectrum with Nabeel receiving SSI benefits. MOB reports that SSI benefits have been helpful for the family to maintain a budget that works for them. Yousuf is in the process of being determined for eligibility for SSI. The FOB has a history of depression, anxiety, and ADHD. FELA is also being evaluated for the autism spectrum. MOB reports a history of depression and depression. MOB reports history of treatment with fluoxetine but did stop this upon realization of with Braulio. MOB reports willingness to return back on medication if needed in the future. CASSIE denies any substance use history for herself, and denies using alcohol outside of . No marijuana use. Does smoke tobacco. CASSIE reports a family history including her father dying by overdose (uncertain whether this was intentional or unintentional) in July 2021. CASSIE's brother also has a history of substance use issues. Supports/resources: Reports to have necessary supplies for infant including safe sleep spaces and a car seat for the infant. MOB reports her mother is a strong support both practically and emotionally, and CASSIE's mother will be taking off part of this week to help MOB and FOB transition home with the children. MOB reports also to have a best friend locally who is helpful. MOB denies any concerns with meeting basic needs. Active with job and family services for medical and food. Active with WIC. History of [employer] but is not currently involved. MOB denies any history of children services involvement and no legal issues. Assessment: Met with MOB in room, introducing to self and social work role. MOB cooperative, polite and willing to speak with social psychologist. MOB held good eye contact. Bright affect though did cry several times during social work intervention, though appropriate to conversation being discussed. MOB denies any concerns with housing, transportation or baby supplies. MOB reports intent to provide breastmilk to the baby. MOB reports to feel she is has adequate support at present time. MOB tearful when discussing the loss of her father in 2021. MOB denies any current concerns with mood or anxiety, and expresses clearly willingness to get back on medication should symptoms arise and become distressing. MOB reports insight into the importance of self-care, in order to continue being present and available for her family. MOB future oriented and focusing on her family as a reason to care for self. Provided MOB a packet on mood and anxiety disorders including resources for additional support. Provided resource list for [facility] including information on help me grow, and tips on shaken baby prevention and safe sleeping. MOB accepted all information and expressed thanks for visit. No voiced concerns by nursing staff regarding parent-child interactions or bonding. Plan: MOB and discharging home with assist from family. Resources on mood and anxiety disorders have been provided. No further needs requested or indicated. -SOL Gamez, CARLO *This note was generated with [employer] software. It may contain incorrect words, spelling, and punctuation that were not noted in review of the chart prior to signing*
== END 2022-10-08 16:48 | disposition home or self-care (01) | DRG 540 ==
LOC: WPOUT 22:32 → WP 22:33
PROVIDERS: Admitting Provider Obstetrics & Gynecology; PCP Physician Assistant; Visit Provider Obstetrics & Gynecology
DX: O42.913 Preterm premature rupture of membranes, unspecified as to length of time between rupture and onset of labor, third trimester (principal); E66.8 Other obesity; F17.210 Nicotine dependence, cigarettes, uncomplicated; O24.429 Gestational diabetes mellitus in childbirth, unspecified control; O34.211 Maternal care for low transverse scar from previous cesarean delivery; Z3A.36 36 weeks gestation of pregnancy; Z37.0 Single live birth; O99.334 Smoking (tobacco) complicating childbirth; Z79.01 Long term (current) use of anticoagulants; O99.214 Obesity complicating childbirth
CPT/HCPCS: 59025; 59050; 82962; 84112; 85025; 85027; 86780; 86850; 86900; 86901; 99221; J7120; A4216; G0378; J0702

== ENCOUNTER → 2025-04-19 | Outpatient (CLI) | payer MEDICAID, SELFPAY ==
--- NOTE | 2025-04-19 16:15 | MRI_ITS ---
PROCEDURE: SPINE CERVICAL (ROUTINE) 04/19/2025 REASON FOR EXAM: R ARM PARESTHESIAS, POSTERIOR NECK PAIN R SIDE TECHNIQUE: [facility] [place]: MR Procedure: SPINE CERVICAL (ROUTINE) Multiplanar and multisequence images were obtained without IV contrast administration. COMPARISON: Radiographs dated 02/16/2025. FINDINGS: No acute fracture or subluxation. Minimal disc narrowing is noted at C6-7. The remainder of the lumbar discs are adequately maintained and well hydrated. The bone marrow signal is unremarkable. The cervical cord is normal in size and signal. The cervicomedullary junction and prevertebral soft tissues appear unremarkable. C2-3: Unremarkable C3-4: Unremarkable C4-5: Unremarkable C5-6: Unremarkable C6-7: Minimal disc narrowing with a 5 mm posterior right lateral/foraminal disc protrusion as well as anterior disc bulging result in mild effacement of the anterior right side of the cord, moderate narrowing of the thecal sac in the midline to 7 mm (AP), involvement of the right anterolateral recess, and severe right neural foraminal narrowing. C7-T1: Unremarkable MRI/Spine Cervical (Routine) IMPRESSION: Degenerative disc disease at C6-7 including a 5 mm posterior right lateral/fora barbara disc protrusion which effaces the anterior right side of the cord, moderately narrows the thecal sac in the midline, and r esults in severe right neural foraminal narrowing. Reading Location: [id number]
== END | disposition home or self-care (01) ==
LOC: OPMRI 16:08
PROVIDERS: Referring Provider Nurse Practitioner Family; Visit Provider Nurse Practitioner Family
DX: M54.12 Radiculopathy, cervical region (principal); R20.2 Paresthesia of skin
CPT/HCPCS: 72141